=== PATIENT | female | born 1960 | race Caucasian/White ===

== ENCOUNTER 2019-09-10 06:10 | Outpatient (CLI) | payer BC, SELFPAY ==
[2019-09-10 16:38] LABS: SARS-CoV-2 RNA PCR Negative
== END 2019-09-10 06:11 | disposition home or self-care (01) ==
LOC: ANHCOVIDDT 06:12
PROVIDERS: PCP Internal Medicine; Visit Provider Internal Medicine Gastroenterology
DX: Z01.818 Encounter for other preprocedural examination (principal); Z11.59 Encounter for screening for other viral diseases
CPT/HCPCS: 87635; C9803; U0003

== ENCOUNTER 2019-09-12 00:40 | Day surgery (SDC) | payer BC, SELFPAY ==
[2019-09-08 12:04] VITALS: BMI 32.7
[2019-09-12] MEDS: LACTATED RINGERS 1,000 ML 150 ML IV CONT (08:40)
[2019-09-12 08:43] VITALS: BP 144/93; PULSE 94; RESP 18; TEMP 37; O2SAT 98; BMI 35.3
--- NOTE | 2019-09-12 08:48 | SUR.PREOP ---
NUMEROUS SORES NOTED ON EXTREMITIES SMALL IN ORIGIN WITH SOME REDDNESS NOTED AROUND SORES WITH CRUSTED AREA OVER THE SORES.LEE ANN MOTA
--- NOTE | 2019-09-12 08:53 | WPDANESEPPF ---
Anes - Initial Pre Proc Eval Procedure: Operation Date: 09/12/19 09:30 Proposed Procedures p Colonoscopy - Demetrio Carcamo MD Date/Time: 09/12/19 08:53 Surgeon: Demetrio Carcamo MD Pre Op Diagnosis: diarrhea Patient Data Age: 58 Gender: F Height: 5 ft 6 in Weight: 99.2 kg Last Vital Signs Temp 37.0 C 09/12/19 08:43 Pulse 94 09/12/19 08:43 Resp 18 09/12/19 08:43 BP 144/93 H 09/12/19 08:43 Pulse Ox 98 09/12/19 08:43 Allergies Allergy/AdvReac Type Severity Reaction Status Date / Time metoclopramide Allergy Unknown ANXIETY Verified 09/12/19 08:26 Home Medications Medication Instructions Recorded Confirmed Type amitriptyline 50 mg tablet 50 mg PO ONCE 07/16/19 09/12/19 History aripiprazole 2 mg tablet 2 mg PO DAILY #90 tablet 07/16/19 09/12/19 Rx clonazepam 2 mg tablet 2 mg PO BID tablet 07/16/19 09/12/19 History sertraline 100 mg tablet 100 mg PO BID tablet 07/16/19 09/08/19 History zolpidem 10 mg tablet 20 mg PO BID tablet 07/16/19 09/12/19 History albuterol sulfate 90 mcg/actuation 2 puff INHALATION Q4-6H PRN #8.5 gm 08/18/19 09/12/19 Rx aerosol inhaler omeprazole-sodium bicarbonate 1 cap PO DAILY 09/08/19 09/12/19 History Patient hx anesthesia problems: none Family hx anesthesia problems: none PMFSH Family History Family History Father Family history of obesity Depression Patient's father is in good health Mother Family history of obesity Depression Patient's mother is in good health Family history of diabetes mellitus in first degree relative Family history of irritable bowel syndrome Hypertension Family history of elevated blood lipids Grandparent Family history of mental disorder Family history of alcoholism Family history of Alzheimer's disease Diabetes mellitus Family history of malignant neoplasm of stomach Family history of heart disease in male family member before age 55 Family history of cardiovascular disease Family history of hepatitis Sibling Patient's sister is in good health Patient's brother is in good health Family history of learning disability Social History Social History Smoking status: Never smoker Second hand tobacco smoke exposure: No Smoking end date: 04/30/84 Alcohol intake: current Anes - Eval Final PreProcedure Day of Procedure 09/12/19 08:53 Patient weight: obese Heart: regular rate and rhythm Lungs: clear to auscultation Airway: Mallampati scale class II Neurological: alert and oriented Last oral intake: >/= 8 hours ASA classification: III Emergent: no Anesthetic plan: proceed Anesthesia type and monitoring: general GIVS and standard monitoring Informed Consent: The patient's anesthetic plan and its attendant risks and benefits were discussed with the patient/family/POA. Questions were solicited and answers provided to the satisfaction of the patient/family/POA.
--- NOTE | 2019-09-12 09:25 | WPDGICN ---
Assessment and Plan Assessment and plan (1) Chronic diarrhea: Code(s): K52.9 - Noninfective gastroenteritis and colitis, unspecified Status: Acute Assessment and Plan: Patient has chronic diarrhea likely related to irritable bowel syndrome poor response to medication trials. Plan is for colonoscopy to evaluate more thoroughly. Further recommendations will be given after endoscopy. Patient current we will be on FiberCon 2 tabs p.o. b.i.d.. ( Previous cholecystectomy makes it S unable to try Viberzi). Xifaxan may be a consideration. (2) IBS (irritable bowel syndrome): Code(s): K58.9 - Irritable bowel syndrome without diarrhea Status: Acute GI Consult Note Consult date/time: 09/12/19 09:25 HPI: Olivia Zhou is a 58 year old female Seen in evaluation at the request of Dr. Purcell. Patient has a long history of irritable bowel syndrome. She reports diarrhea over the last 5 years she states that occurs daily. She states she never has normal stools. Stools reported be loose or watery. She denies any bleeding. She denies any fever. She denies any weight loss. She currently takes Imodium for relief of symptoms. She does notice occasional hemorrhoidal discomfort. Past medical history is significant for cholecystectomy, she is a history of asthma. In the past has tried Questran am with no relief of symptoms. At 1 time she was given per DM. Past medical history also significant for SLE in remission. She has a history of a lap band. History of gastric bypass. Has been treated for hemolytic anemia in the past with previous splenectomy. Review of Systems Review of Systems: All systems reviewed & are unremarkable except as noted in HPI and below PMFSH Family History Family History Father Family history of obesity Depression Patient's father is in good health Mother Family history of obesity Depression Patient's mother is in good health Family history of diabetes mellitus in first degree relative Family history of irritable bowel syndrome Hypertension Family history of elevated blood lipids Grandparent Family history of mental disorder Family history of alcoholism Family history of Alzheimer's disease Diabetes mellitus Family history of malignant neoplasm of stomach Family history of heart disease in male family member before age 55 Family history of cardiovascular disease Family history of hepatitis Sibling Patient's sister is in good health Patient's brother is in good health Family history of learning disability Social History Social History Smoking status: Never smoker Second hand tobacco smoke exposure: No Smoking end date: 04/30/84 Alcohol intake: current Meds Home Medications and Allergies Home Medications Medication Instructions Recorded Confirmed Type amitriptyline 50 mg tablet 50 mg PO ONCE 07/16/19 09/12/19 History aripiprazole 2 mg tablet 2 mg PO DAILY #90 tablet 07/16/19 09/12/19 Rx clonazepam 2 mg tablet 2 mg PO BID tablet 07/16/19 09/12/19 History sertraline 100 mg tablet 100 mg PO BID tablet 07/16/19 09/08/19 History zolpidem 10 mg tablet 20 mg PO BID tablet 07/16/19 09/12/19 History albuterol sulfate 90 mcg/actuation 2 puff INHALATION Q4-6H PRN #8.5 gm 08/18/19 09/12/19 Rx aerosol inhaler omeprazole-sodium bicarbonate 1 cap PO DAILY 09/08/19 09/12/19 History Allergies Allergy/AdvReac Type Severity Reaction Status Date / Time metoclopramide Allergy Unknown ANXIETY Verified 09/12/19 08:26 Vital Signs Vital Signs - 24 hr 09/12/19 08:43 Temperature 37.0 C Pulse Rate 94 Respiratory Rate 18 Blood Pressure 144/93 H Pulse Oximetry 98 Exam Narrative: Exam Narrative: Physical exam reveals patient to be alert. Vital signs stable. HEENT exam unremarkable. Lungs are clear to auscultation and pe
[2019-09-12 09:31] VITALS: BP 129/83; PULSE 96; RESP 19; O2SAT 100
[2019-09-12 09:41] VITALS: BP 135/90; PULSE 89; RESP 26; O2SAT 98
[2019-09-12 09:51] VITALS: BP 136/84; PULSE 92; RESP 26; O2SAT 98
== END 2019-09-12 10:19 | disposition home or self-care (01) ==
PROVIDERS: PCP Internal Medicine; Visit Provider Internal Medicine Gastroenterology
PROC: 0DJD8ZZ Inspection of Lower Intestinal Tract, Via Natural or Artificial Opening Endoscopic (ICD-10-PCS; CPT 45378; principal; 2019-09-12 09:30)
DX: K58.0 Irritable bowel syndrome with diarrhea (principal); K57.30 Diverticulosis of large intestine without perforation or abscess without bleeding; K64.8 Other hemorrhoids; E66.9 Obesity, unspecified; Z68.35 Body mass index [BMI] 35.0-35.9, adult
CPT/HCPCS: 45380; 88305; J2704; J7120

== ENCOUNTER → 2020-01-15 15:56 | Outpatient (CLI) | payer BC, SELFPAY ==
--- NOTE | ~2020-01-15 | MM_ITS ---
EXAMINATION: MM screening jet BI w wil HISTORY: Screening mammogram TECHNIQUE: Craniocaudal and mediolateral oblique 3-D tomosynthesis images were obtained and synthetic 2-D images were generated. CAD analysis was submitted and interpreted. COMPARISON: 12/25/2018, 10/17/2017, 09/20/2016 bilateral digital screening mammogram examinations BREAST PARENCHYMAL COMPOSITION: There are scattered areas of fibroglandular density. FINDINGS: There is no evidence of suspicious mass, calcification, or architectural distortion to sugg est malignancy in either breast. There has been no suspicious interval change. IMPRESSION: 1. No mammographic evidence of malignancy. 2. Recommend routine screening mammography in one year. BI-RADS Category 1: Negative Reviewed, dictated and finalized at location A.
== END ==
PROVIDERS: PCP Internal Medicine; Visit Provider Internal Medicine
DX: Z12.31 Encounter for screening mammogram for malignant neoplasm of breast (principal)
CPT/HCPCS: 77063; 77067

== ENCOUNTER → 2020-06-11 11:53 | Outpatient (CLI) | payer BC, SELFPAY ==
--- NOTE | ~2020-06-11 | XR_ITS ---
XR hip BI 2V w AP pelvis 06/11/2020 12:09 Indication: Hip pain Procedure: AP pelvis and 2 views each hip Comparison: 11/29/2018 Findings: There is mild osteoarthritis of the hips. No fracture or traumatic malalignment. Sacral for amen are symmetric. No significant soft tissue abnormality. No foreign bodies. Sacral foramen are sym metric. Pelvic rings are intact. Impression: 1: Mild osteoarthritis of the hips. Reviewed, dictated and finalized at location B. INSPECTOR Impression: 1: Mild osteoarthritis of the hips.
== END ==
PROVIDERS: PCP Internal Medicine; Visit Provider Internal Medicine
DX: M16.0 Bilateral primary osteoarthritis of hip (principal); M46.1 Sacroiliitis, not elsewhere classified; M70.61 Trochanteric bursitis, right hip; M70.62 Trochanteric bursitis, left hip
CPT/HCPCS: 73521

== ENCOUNTER → 2020-09-17 09:58 | Outpatient (CLI) | payer BC, SELFPAY ==
--- NOTE | ~2020-09-17 | XR_ITS ---
XR foot LT min 3V DATE: 09/17/2020 10:17 INDICATION: Left foot pain TECHNIQUE: 4 views COMPARISON: None FINDINGS: Osteopenia. Mild plantar and minimal posterior calcaneal enthesopathy. Old healed fracture deformity of the proximal phalanx of the fifth digit. There is linear oblique fra cture through the distal shaft of the proximal phalanx of the fourth digit which may be recent. Clini darryn correlation is advised. Subtle cortical lucency and spurring is noted at the distal lateral aspect of the calcaneus. This may be due to degenerative change or old fracture deformity. No other fracture or dislocation is detected. No periosteal reaction or bone destruction. Mild osteoarthritic change at the first metatarsophalangeal joint. IMPRESSION: Old healed fracture of proximal phalanx of fifth digit Linear oblique fracture through distal shaft of proximal phallus of fourth digit, possibly recent Possible old fracture deformity and/or spurring of the distal lateral aspect of the calcaneus Plantar and minimal posterior calcaneal enthesopathy Osteopenia Reviewed, dictated and finalized at location B. IMPRESSION: Old healed fracture of proximal phalanx of fifth digit Linear oblique fracture through distal shaft of proximal phallus of fourth digi t, possibly recent Possible old fracture deformity and/or spurring of the distal lateral aspect of the calcaneus Plantar and minimal posterior calcaneal enthesopathy Osteopenia
== END ==
PROVIDERS: PCP Internal Medicine; Visit Provider Internal Medicine
DX: S92.515A Nondisplaced fracture of proximal phalanx of left lesser toe(s), initial encounter for closed fracture (principal); M79.672 Pain in left foot; M77.32 Calcaneal spur, left foot; M85.872 Other specified disorders of bone density and structure, left ankle and foot; Z87.81 Personal history of (healed) traumatic fracture
CPT/HCPCS: 73630

== ENCOUNTER → 2021-01-21 03:51 | Outpatient (CLI) | payer BC, SELFPAY ==
[2021-01-21 18:26] LABS: SARS-CoV-2 RNA PCR Negative
== END ==
PROVIDERS: PCP Internal Medicine; Visit Provider Internal Medicine
DX: R68.89 Other general symptoms and signs (principal); Z20.822 Contact with and (suspected) exposure to COVID-19
CPT/HCPCS: C9803; U0003; U0005

== ENCOUNTER 2021-03-03 08:13 | Outpatient (CLI) | payer BC, SELFPAY ==
--- NOTE | ~2021-03-03 | US_ITS ---
EXAMINATION: US abdomen complete EXAM DATE: 03/03/2021 08:56 INDICATION: R79.89 - Other specified abnormal findings of blood chemi... No gallbladder or spleen. TECHNIQUE: Multiple grayscale and Doppler images of the complete abdomen were obtained (by a technolo alice who performed the scan) and subsequently reviewed. Comparison is made to prior examination from 07/23/2018. FINDINGS: The abdominal aorta is normal in caliber. Visualized portion IVC is patent. The pancreatic head a nd body are normal in appearance. The pancreatic tail is not visualized. Mildly echogenic liver parenchyma, hepatic steatosis. There are no focal liver lesions identified. There is no evidence of intrahepatic biliary duct dilation. Portal venous flow was seen in the hepa topedal, normal direction and has normal Doppler waveform. Common bile duct measures 4 mm, which is normal. The gallbladder fossa is unremarkable. Right kidney: There is normal contour and echogenicity. It measures 9.1 x 4.9 x 6.5 centimeters. T here are no focal renal lesions identified. There is no hydronephrosis. Left kidney: There is normal contour and echogenicity. It measures 10.0 x 5.5 x 5.7 centimeters. Th ere is exophytic anechoic left renal cyst measuring up to 9.5 cm, most likely a cyst. There is no h ydronephrosis. Spleen not identified. IMPRESSION: 1. Hepatic steatosis. 2. Left renal lesion likely large exophytic cyst. Reviewed, dictated and finalized at location A.
== END 2021-03-03 08:14 | disposition home or self-care (01) ==
PROVIDERS: PCP Internal Medicine; Visit Provider Internal Medicine
DX: R79.89 Other specified abnormal findings of blood chemistry (principal); K76.0 Fatty (change of) liver, not elsewhere classified; N28.1 Cyst of kidney, acquired
CPT/HCPCS: 76700

== ENCOUNTER → 2021-03-18 14:01 | Outpatient (CLI) | payer BC, SELFPAY ==
--- NOTE | ~2021-03-18 | MM_ITS ---
EXAMINATION: MM screening [facility] BI w wil HISTORY: Screening mammogram TECHNIQUE: Craniocaudal and mediolateral oblique 3-D tomosynthesis images were obtained and synthetic 2-D images were generated. CAD analysis was submitted and interpreted. COMPARISON: 01/15/2020, 12/17/2018 BREAST PARENCHYMAL COMPOSITION: There are scattered areas of fibroglandular density. FINDINGS: There is no evidence of suspicious mass, calcification, or architectural distortion to sugg est malignancy in either breast. There has been no suspicious interval change. IMPRESSION: 1. No mammographic evidence of malignancy. 2. Recommend routine screening mammography in one year. BI-RADS Category 1: Negative Reviewed, dictated and finalized at location A. ITIZED PAPER TESTER
== END ==
PROVIDERS: PCP Internal Medicine; Visit Provider Internal Medicine
DX: Z12.31 Encounter for screening mammogram for malignant neoplasm of breast (principal)
CPT/HCPCS: 77063; 77067

== ENCOUNTER 2021-04-16 13:17 | Inpatient (IN) | payer BC, SELFPAY ==
[2021-04-16] VITALS (12 sets, daily range): BP systolic 116–149; BP diastolic 79–110; PULSE 73–100; RESP 14–26; TEMP 36.3–37.5; O2SAT 90–100; BMI 40.0
--- NOTE | ~2021-04-16 | US_ITS ---
US abdomen limited INDICATION: Elevated liver function tests. PROCEDURE: Realtime right upper abdominal ultrasound. COMPARISON: No prior studies for comparison. FINDINGS: The pancreas is normal without focal mass or pancreatic ductal dilation. Liver echotexture is increased, consistent with fatty infiltration. There is normal directional flow in the portal ve in. Gallbladder is surgically absent. Common bile duct measures 4 mm. No sonographic Ibarra's sign. IMPRESSION: 1: Hepatic steatosis. Reviewed, dictated and finalized at location A. C[employer]ODUCE COMMISSION AGENT IMPRESSION: 1: Hepatic steatosis.
--- NOTE | ~2021-04-16 | US_ITS ---
EXAMINATION:US venous doppler LE BI INDICATION:Bilateral leg pain. Evaluate for DVT. TECHNIQUE: Multiple grayscale, color flow and Doppler images of the right and left lower extremity de ep venous systems were obtained and reviewed. COMPARISON:No prior studies for comparison. FINDINGS: The common femoral, superficial femoral and popliteal veins demonstrate normal respiratory variation, augmentation and compressibility. Color flow is also seen within the posterior tibial, pe roneal, greater saphenous and profunda veins. IMPRESSION: 1: No lower extremity deep venous thrombosis. Reviewed, dictated and finalized at location A. TECHNICIAN/PAINTER
--- NOTE | ~2021-04-16 | XR_ITS ---
EXAMINATION: XR chest 1V portable 04/16/2021 16:14 INDICATION: Shortness of breath. Overdose. PROCEDURE: AP portable chest COMPARISON: 09/22/2011 FINDINGS: The lungs are clear. The cardiomediastinal silhouette is within normal limits. There are no pleural effusions. There is no pneumothorax suspected. There are surgical changes of cervical sp inal fusion. There are surgical clips in the left upper abdomen. IMPRESSION: 1: NO ACUTE CARDIOPULMONARY DISEASE. Reviewed, dictated and finalized at location A. E OR[employer]OPEDIC
--- NOTE | ~2021-04-16 | CT_ITS ---
EXAMINATION: CTA chest PE protocol DATE: 04/16/2021 16:59 DIVING COACH INDICATION: Hypoxia. Gastric bypass surgery. Accidental overdose. TECHNIQUE: Computed tomographic angiography (CTA) of the chest was performed without and with 100 mL Omnipaque-350 intravenous contrast. The dose-length product was 769.51 mGy-cm. Maximum intensity proj ection 3D-reconstructions of the aorta and other arteries were constructed by the technologist on a Ver[employer] workstation. Automated exposure control and iterative reconstruction technique were employed. COMPARISON: None. FINDINGS: Evaluation of lower lobe segmental arteries limited by motion. There are small filling defe cts in lower lobe segmental and subsegmental pulmonary arteries, consistent with pulmonary embolism, small thrombus burden. Heart size normal. No evidence for aortic aneurysm. No thoracic lymphadenopath y. There is dependent atelectasis bilaterally. No endobronchial lesions. No pneumothorax. No acute os seous abnormality. IMPRESSION: 1. Filling defects lower lobe segmental and subsegmental pulmonary arteries, consistent with pulmonar y embolism, small thrombus burden. 2: Dependent bilateral atelectasis. Reviewed, dictated and finalized at location A. NG COACH IMPRESSION: 1. Filling defects lower lobe segmental and subsegmental pulmonary arteries, co nsistent with pulmonary embolism, small thrombus burden. 2: Dependent bilateral atelectasis.
--- NOTE | 2021-04-16 14:08 | ED.GENADULT ---
HPI - General Adult General Chief complaint: Overdose Stated complaint: OD Time Seen by Provider: 04/16/21 13:57 History of Present Illness HPI narrative: 60-year-old female presented emerged department for evaluation after having an accidental overdose of her hydrocodone. Patient states that on Sunday she had a revision of her gastric bypass at [facility] by Dr. Solorio. Surgery was on Sunday and patient went home on . states that this morning at approximately 530 patient woke him up and asked for him to retrieve her hydrocodone elixir. states that he got up about 10:00 to do some work and his continue to sleep. states that at approximately noon he went to go check on his and found her unresponsive frothing at the mouth. At that time he called EMS. EMS did administer intranasal Narcan and also gave a dose of IV Narcan. At the time of my first evaluation patient is more alert and appropriate. Patient does converse easily to verbal stimuli. Patient is alert to her history but does not remember the events of the morning. Patient denies any shortness of breath. Patient denies any abdominal pain. Patient feels she is healing well after her surgery. Related Data Home Medications Medication Instructions Recorded Confirmed sertraline 100 mg tablet 100 mg PO BID tablet 07/16/19 04/08/21 amitriptyline 50 mg tablet 50 mg PO DAILY tablet 02/04/20 04/08/21 aripiprazole 2 mg tablet 2 mg PO DAILY 09/21/20 04/08/21 clonazepam 2 mg tablet 2 mg PO DAILY 01/13/21 04/08/21 omeprazole-sodium bicarbonate 1 cap PO 04/08/21 04/08/21 [Zegerid] Allergies Allergy/AdvReac Type Severity Reaction Status Date / Time metoclopramide AdvReac Severe ANXIETY Verified 04/16/21 13:43 Review of Systems Review of Systems: CONSTITUTIONAL: Denies fever, chills, or sweats. EYES: Denies visual changes, redness, or discharge. ENT: Denies rhinorrhea, congestion, sore throat, or otalgia. CARDIOVASCULAR: Denies chest pain, palpitations, or edema. RESPIRATORY: Denies cough or dyspnea. GASTROINTESTINAL: Denies nausea, vomiting, or diarrhea. Surgical abdominal pain is improving GENITOURINARY: Denies dysuria or hematuria. SKIN: Denies rash or itching. MUSCULOSKELETAL: Denies back pain, joint pain, or myalgia. NEUROLOGIC: Denies headache, numbness, or weakness. PSYCHIATRIC: Denies anxiety or depression. [facility] Past Medical History Medical History Asthma Chronic ITP (idiopathic thrombocytopenia) Discoid lupus Hemolytic anemia Systemic lupus Toe fracture, left Vision changes Wears glasses Weight gain Surgical History Surgical History History of abdominoplasty 2000, 2006 History of breast lift History of cervical discectomy with fusion, 2007 History of gastric bypass 2014 History of incisional hernia repair x2 History of removal of laparoscopic gastric banding device 2007, 2008 History of surgery Suboccipital surgery for acoustic neuroma Hx of cholecystectomy Hx of splenectomy 1983 Personal history of gastric banding 2002, 2007 Family History Family History Father Family history of obesity Depression Patient's father is in good health Mother Family history of obesity Depression Patient's mother is in good health Family history of diabetes mellitus in first degree relative Family history of irritable bowel syndrome Hypertension Family history of elevated blood lipids Grandparent Family history of mental disorder Family history of alcoholism Family history of Alzheimer's disease Diabetes mellitus Family history of malignant neoplasm of stomach Family history of heart disease in male family member before age 55 Family history of cardiovascular disease Family history of hepatitis Sibling Patient's sister is in go
[2021-04-16] MEDS: SODIUM CHLORIDE 0.9% IV 1,000 ML 999 ML IV CONT ×2 (14:42→16:26)
[2021-04-16 14:59] LABS: Glucose Point of Care 170 mg/dl (65-105)
[2021-04-16 15:15] LABS: Add Urine Microscopic? YES; Appearance Urine Clear (Clear); Bilirubin Urine Negative (Negative); Blood Urine Negative (Negative); Color Urine Yellow (Yellow); Glucose Urine UA Negative (Negative); Ketones Urine Trace mg/dL (Negative); Leukocyte Esterase Ur Negative LEU/UL (Negative); Mucus Urine Rare /lpf; Nitrate Urine Negative (Negative); Protein Urine Negative (Negative); Specific Grav Ur 1.013 (1.001-1.035); Urobilinogen Urine Negative mg/dL (<2.0)
[2021-04-16 15:32] LABS: Basophils Percent Auto 0.2 % (0.2-1.2); Eosinophils Percent Auto 0.1 % (0-4.4); Hematocrit 36.9 % (37.0-47.0); Hemoglobin 11.7 g/dL (12.0-15.0); Immature Granulocyte Absolute 0.02 K/mm3 (0.00-0.031); Immature Granulocyte Percent A 0.2 % (0-0.5); Lymphocytes Absolute Auto 1.26 K/mm3 (0.9-3.2); Lymphocytes Percent Auto 12.1 % (18.3-44.2); Mean Corpuscular HGB Conc 31.7 g/dl (32-36); Mean Corpuscular Hemoglobin 34.8 pg (26-34); Mean Corpuscular Volume 109.8 fl (80-100); Mean Platelet Volume 10.4 fl (7.4-10.4); Monocytes Percent Auto 9.9 % (2.6-8.5); Neutrophils Absolute Auto 8.1 K/mm3 (1.3-6.7); Neutrophils Percent Auto 77.5 % (45.5-73.1); Platelet Count Result 195 k/mm3 (150-375); Red Blood Count 3.36 M/mm3 (4.2-5.4); Red Cell Distribution Width 12.7 % (11.5-14.5); White Blood Count 10.4 K/mm3 (4.5-10.0)
[2021-04-16 15:43] LABS: Acetaminophen < 10 ug/mL (10-30); Alanine Aminotransferase 148 U/L (4-35); Albumin Level 3.8 g/dL (3.5-5.1); Alkaline Phosphatase 72 U/L (38-126); Anion Gap 7 mmol/L (8-16); Aspartate Amino Transferase 268 U/L (14-36); Bilirubin,Total 0.5 mg/dL (0.2-1.3); Blood Urea Nitrogen 19 mg/dL (7-17); Carbon Dioxide 24 mmol/L (22-30); Chloride 100 mmol/L (98-107); Estimated CRCL calculation 55 ml/min; Estimated Glomerular Filt Rate 38; Ethanol < 10 mg/dL (<10); Glucose 154 mg/dL (65-110); Magnesium 2.1 mg/dL (1.6-2.3); Potassium 5.1 mmol/L (3.4-5.0); Salicylate < 1.0 mg/dL (2-20); Sodium 131 mmol/L (137-145)
[2021-04-16 15:44] LABS: Lactic Acid Reflex 1.2 mmol/L (0.7-2.1)
[2021-04-16 15:44] LABS: Alveolar/Arterial O2 Gradient 93.3 mmHg; Fractional Inspired Oxygen 28 %; HCO3 ABG 23.8 mEq/l (22.0-26.0); Oxygen Content ABG 15.3 %vol (16.0-22.0); PCO2 ABG 44.5 mmHg (35.0-45.0); PO2 FiO2 Ratio Arterial Blood 1.92 %; Total Hemoglobin 12.6 g/dL (12.0-18.0); pH ABG 7.346 (7.350-7.450)
[2021-04-16 15:45] LABS: Oxygen Saturation ABG 86.2 % (95.0-100.0); Oxyhemoglobin 86.4 % THb (90.0-100.0)
[2021-04-16 15:46] LABS: PO2 ABG 53.8 mmHg (80.0-100.0)
[2021-04-16 15:47] LABS: INR 1.2
[2021-04-16 15:47] LABS: Device NASAL CANNULA; Modified Allen's Test Pass; Site Drawn LEFT RADIAL
[2021-04-16] MEDS: ENOXAPARIN 80 MG/0.8 ML SYRINGE 135 MG SUB-Q (18:00)
--- NOTE | 2021-04-16 19:15 | PC.NURSE ---
Assumed care of pt at this time, report taken from Helga MOTA. Pt alert and upright on stretcher, on 2L NC.
--- NOTE | 2021-04-16 22:38 | ADMGEN ---
This patient, Olivia Zhou, was admitted to Medical Room 344-01. Patient/family oriented to hospital policies and general routines including ID bracelet, bed and alarms, visiting hours, pain management, procedures, bathroom and other care routines, personal items, smoking policy, room service/diet, and visiting hours. Information on how to activate the Rapid Response Team has been discussed. Patient/Family are encouraged to report perceived risks to care and to ask questions if they do not understand what they are told or what they should do.
[2021-04-16 23:05] LABS: Amphetamine Screen Urine Negative (Negative); Barbiturate Screen Urine Negative (Negative); Benzodiazepines Screen Urine Positive (Negative); Cannabinoid Screen Urine Negative (Negative); Cocaine Screen Urine Negative (Negative); Methadone Screen Urine Negative (Negative); Opiate Screen Urine Positive (Negative); Phencyclidine Screen Urine Negative (Negative)
[2021-04-17] VITALS (15 sets, daily range): BP systolic 137–159; BP diastolic 75–94; PULSE 73–90; RESP 14–20; TEMP 35.8–36.3; O2SAT 91–100
--- NOTE | 2021-04-17 01:00 | PM.IMHP ---
H&P: HPI History of Present Illness Date/Time: 04/16/21 20:14 Chief Complaint: Overdose Narrative: 60-year-old female presented emerged department for evaluation after having an accidental overdose of her oxycodone. She has recently had a revision of her gastric bypass at [facility] last week. She has been using oxycodone leg stare for pain control and states she accidentally took higher than required does in the morning yesterday. The when went to check on her in the afternoon found her unresponsive with frothing in her mouth and called EMS. EMS noted reviewed. Had 120 mL of oxycodone filled on 04/14/2021 has only 40 mL left patient had a 10 mL syringe with it treatment was 4 5 milligram/mL every 6 hours. Patient was given 2 mg of Narcan intranasally initial saturation was 71% on room air was placed on 15 L oxygen via non-rebreather mask. Patient became responsive to painful stimuli. IV line was stabbed Marifer and subsequently 2 mg of IV Narcan was given which improved her to become more alert but remained confused. She is noted to be tachycardic on the monitor blood glucose was 71. She remained confusion route to the hospital. Saturation was 95% on oxygen. She was evaluated with a CTA due to her hypoxia and was positive for bilateral subsegmental PE. She does not have any history of PE in the past or in the family. She also states she does not remember anything what happened at home and by the time she is more awake she was already in the hospital. The patient is currently off oxygen and denies any chest pain or shortness of breath. She also denies abdominal pain except for surgical pain from her recent surgery. Review of Systems Review of Systems: CONSTITUTIONAL: Denies fever, chills, or sweats. EYES: Denies visual changes, redness, or discharge. ENT: Denies rhinorrhea, congestion, sore throat, or otalgia. CARDIOVASCULAR: Denies chest pain, palpitations, or edema. RESPIRATORY: Denies cough or dyspnea. GASTROINTESTINAL: Denies nausea, vomiting, or diarrhea. Surgical abdominal pain is improving GENITOURINARY: Denies dysuria or hematuria. SKIN: Denies rash or itching. MUSCULOSKELETAL: Denies back pain, joint pain, or myalgia. NEUROLOGIC: Denies headache, numbness, or weakness. PSYCHIATRIC: Denies anxiety or depression. PMFSH Past Medical History Medical History Asthma Chronic ITP (idiopathic thrombocytopenia) Discoid lupus Hemolytic anemia Systemic lupus Toe fracture, left Vision changes Wears glasses Weight gain Surgical History Surgical History History of abdominoplasty 2000, 2006 History of breast lift History of cervical discectomy with fusion, 2007 History of gastric bypass 2014 History of incisional hernia repair x2 History of removal of laparoscopic gastric banding device 2007, 2008 History of surgery Suboccipital surgery for acoustic neuroma Hx of cholecystectomy Hx of splenectomy 1983 Personal history of gastric banding 2002, 2007 Family History Family History Father Family history of obesity Depression Patient's father is in good health Mother Family history of obesity Depression Patient's mother is in good health Family history of diabetes mellitus in first degree relative Family history of irritable bowel syndrome Hypertension Family history of elevated blood lipids Grandparent Family history of mental disorder Family history of alcoholism Family history of Alzheimer's disease Diabetes mellitus Family history of malignant neoplasm of stomach Family history of heart disease in male family member before age 55 Family history of cardiovascular disease Family history of hepatitis Sibling Patient's sister is in good health Patient's brother is in good health Family history of learning disability Other
[2021-04-17 06:16] LABS: Basophils Percent Auto 0.6 % (0.2-1.2); Eosinophils Absolute Auto 0.1 K/mm3 (0-0.3); Eosinophils Percent Auto 0.8 % (0-4.4); Hemoglobin 11.3 g/dL (12.0-15.0); Immature Granulocyte Absolute 0.02 K/mm3 (0.00-0.031); Immature Granulocyte Percent A 0.3 % (0-0.5); Lymphocytes Percent Auto 24.1 % (18.3-44.2); Mean Corpuscular HGB Conc 32.3 g/dl (32-36); Mean Corpuscular Hemoglobin 34.6 pg (26-34); Mean Platelet Volume 10.4 fl (7.4-10.4); Monocytes Absolute Auto 0.5 K/mm3 (0.1-0.6); Monocytes Percent Auto 6.9 % (2.6-8.5); Neutrophils Absolute Auto 4.5 K/mm3 (1.3-6.7); Neutrophils Percent Auto 67.3 % (45.5-73.1); Platelet Count Result 198 k/mm3 (150-375); Red Blood Count 3.27 M/mm3 (4.2-5.4); Red Cell Distribution Width 12.5 % (11.5-14.5); White Blood Count 6.6 K/mm3 (4.5-10.0)
[2021-04-17 06:32] LABS: Alanine Aminotransferase 346 U/L (4-35); Albumin Level 3.8 g/dL (3.5-5.1); Alkaline Phosphatase 71 U/L (38-126); Anion Gap 5 mmol/L (8-16); Aspartate Amino Transferase 648 U/L (14-36); Bilirubin,Total 0.5 mg/dL (0.2-1.3); Blood Urea Nitrogen 14 mg/dL (7-17); Calcium 8.3 mg/dL (8.4-10.2); Carbon Dioxide 26 mmol/L (22-30); Chloride 100 mmol/L (98-107); Estimated CRCL calculation 84 ml/min; Estimated Glomerular Filt Rate > 60; Glucose 101 mg/dL (65-110); Potassium 4.7 mmol/L (3.4-5.0); Sodium 131 mmol/L (137-145)
[2021-04-17] MEDS: FLUTICASONE/SALMETEROL 115-21 MCG INHALER 1 PUFF 2 PUFF INHALATION (07:37)
[2021-04-17] MEDS: SERTRALINE HCL 50 MG TABLET 200 MG PO (08:47)
[2021-04-17] MEDS: ARIPiprazole 2 MG TABLET 4 MG PO (08:47)
[2021-04-17] MEDS: FAMOTIDINE 20 MG TABLET PO ×2 (08:47→18:23)
[2021-04-17] MEDS: AMITRIPTYLINE HCL 25 MG TABLET 50 MG PO ×2 (08:47→20:21)
[2021-04-17] MEDS: oxyCODONE/ACETAMINOPHEN (*CRX) 5-325 MG TABLET 1 TABLET PO ×2 (08:47→20:25)
[2021-04-17] MEDS: PANTOPRAZOLE 40 MG TABLET PO (08:47)
[2021-04-17] MEDS: ROSUVASTATIN 5 MG TABLET PO (08:47)
[2021-04-17] MEDS: ENOXAPARIN 120 MG/0.8 ML SYRINGE 110 MG SUB-Q ×2 (08:48→18:24)
--- NOTE | 2021-04-17 09:49 | PM.IMPN ---
Progress Note: A&P Assessment and Plan (1) Elevated LFTs: Code(s): R79.89 - Other specified abnormal findings of blood chemistry Status: Acute Assessment and Plan: concern that her liver enzymes are elevated 6 times higher than they were 9 days ago. her LFTs were as high 648 and 346, encouraged more PO fluid intake repeat labs to see a down trend, there could be some component of rhabdomyolysis based on her presentation to the ER. may need more IV fluids - restarted at 125 nl/hr patient admitted that she had been drinking alcohol heavily at home, primary care provider was looking into her liver dysfunction, with liver ultrasounds, and stated that need to stop drinking. ordered [facility] alcohol withdrawal protocol - agitated and anxious, may be a component of alcohol withdrawal. Klonopin PRN. (2) Lupus: Code(s): M32.9 - Systemic lupus erythematosus, unspecified Status: Acute Assessment and Plan: patient stated this is in remission at this time no new or concerning symptoms per patient or report no rashes, no concerns noted on exam patient follows-up with Specialist outpatient regarding her lupus. (3) Opioid overdose: Code(s): T40.2X1A - Poisoning by other opioids, accidental (unintentional), initial encounter Status: Acute Assessment and Plan: home oxygen study orthostatic vital signs. neuro checks Narcan PRN Telemetry monitoring improved with Narcan, IVFs, rest and time, due to her liver failure - she may not tolerate or clear narcotic pain medications well and need much lower doses at home/at discharge. (4) Altered mental status: Code(s): R41.82 - Altered mental status, unspecified Status: Acute Assessment and Plan: LOC, AMS at admission was using PO liquid oxycodone at home improved with Narcan, IVFs, rest and time, telemetry monitoring home oxygen study orthostatic vital signs. neuro checks due to her liver failure - she may not tolerate or clear narcotic pain medications well and need much lower doses at home. if worsens, consider checking ammonia level. doesn't appear to be intoxicated at this time. Appears to be in withdrawal at times, anxiety/agitation. Unsure if alcohol withdrawal or opioid withdrawal. (5) Acute pulmonary embolism: Code(s): I26.99 - Other pulmonary embolism without acute cor pulmonale Status: Acute Assessment and Plan: bilateral pulmonary embolisms found on the CT scan need for oral anticoagulation prescription at discharge, need for an echo now to evaluate/rule out for right heart strain at this time, Xarelto to be ordered at discharge (orders in place already), Care Coordination consult in place patient will need to F/U with PCP within 3-14 days for Hospital Follow up and further Xarelto prescriptions(D/C orders already in place) Additional Plan # Altered mental status found to be unresponsive with frothing in the mouth. Improved with IV Narcan and Chest x-rays negative. Continued to improve after Narcan suggestive of opiate overdose as the etiology # Opiate overdose Narcan received. Continue to monitor # Acute Hypoxic respiratory failure initially 71% on room air improved on oxygen supplementation now off oxygen # Acute segmental PE small clot burden. Started on Lovenox at 1 mg per Q lobe twice a day venous duplex lower extremity negative for DVT. May switch to oral agent and morning after confirming cost for NOACs. Likely provoked due to recent surgery. With underlying autoimmune disease ordered thrombotic panel # Recent revision of 5 gastric bypass surgery original in 2013 prior to that had gastric banding 2002, 2007 # hyponatremia mild continue to monitor recheck labs in morning # JUNG baseline creatinine 0.7 currently 1.4 # Elevated transaminases Tylenol salicylate and ethyl alcohol negative. Does have history of mild transaminitis in the past ultrasound with hepatic steatosis recently on
--- NOTE | 2021-04-17 14:24 | PCRCNOTE ---
Patient does not qualify for home oxygen
[2021-04-17] MEDS: clonazePAM (*CRX) 0.5 MG TABLET 2 MG PO (18:23)
[2021-04-17] MEDS: SODIUM CHLORIDE 0.9% IV 1,000 ML 125 ML IV CONT (18:46)
[2021-04-17] MEDS: ZOLPIDEM TARTRATE (*CRX) 5 MG TABLET 20 MG PO (20:24)
--- NOTE | 2021-04-17 22:03 | PCRCNOTE ---
therapist in ED, unable to give. past scheduled time frame, see next available administration.
[2021-04-18] VITALS (12 sets, daily range): BP systolic 128–165; BP diastolic 78–98; PULSE 70–89; RESP 17–20; TEMP 36–36.5; O2SAT 95–99
--- NOTE | 2021-04-18 | ECHO_ITS ---
Patient Info Name: Olivia Zhou Age: 60 years : 1960 Gender: Female Ht: 66 in Wt: 248 lbs BSA: 2.34 m2 HR: 89 bpm BP: 152 / 87 mmHg Heart Rhythm: Sinus Rhythm Technical Quality: Good Exam Date: 04/18/2021 10:41 AM Exam Location: [facility] Card Pulmonary Patient Status: Inpatient Admit Date: 04/16/2021 Staff Ordering Physician: Ree Richmond NP Wardrobe Specialty Worker: Evonne Santoro RDCS Attending Provider: Natty Odell PA-C Referring Physician: Basilio DIXON; Exam Type: CA echo doppler color flow Study Info Indications - BILATERAL PEs, any RH STRAIN Complete two-dimensional, color flow and Doppler transthoracic echocardiogram is performed. Summary 1. Complete two-dimensional, color flow and Doppler transthoracic echocardiogram is performed. 2. Left ventricular chamber dimension is normal. 3. Left ventricular systolic function is normal, estimated at 60-65%. 4. The left ventricular diastolic function is normal. 5. E/e' 9 is minimally elevated. 6. There is mild mitral valve regurgitation. 7. There is mild tricuspid valve regurgitation. 8. Mild pulmonary hypertension, estimated pulmonary arterial systolic pressure is 45 mmHg. Left Ventricle E/e' 9 is minimally elevated. Left ventricular chamber dimension is normal. Left ventricular systolic function is normal, estimated at 60-65%. The left ventricular diastolic function is normal. Right Ventricle Right ventricular systolic function is normal and with normal TAPSE 2.2 cm. Right ventricular chamber dimension is normal. Left Atria Left atrial chamber dimension is normal. Right Atria Right atrial chamber dimension is normal. Aortic Valve The aortic valve is trileaflet. There is no aortic valve stenosis. There is no aortic valve regurgitation. Pulmonic Valve There is no pulmonic regurgitation. Mitral Valve There is no mitral valve stenosis. There is mild mitral valve regurgitation. Tricuspid Valve There is mild tricuspid valve regurgitation. Mild pulmonary hypertension, estimated pulmonary arterial systolic pressure is 45 mmHg. Pericardium/Pleural There is no pericardial effusion. Inferior Vena Cava Normal inferior vena cava with >50% collapse upon inspiration consistent with normal right atrial pressure, 5 mmHg. Aorta The aortic root size at the sinus of Valsalva is normal. Left Ventricular Outflow Tract Name Value Normal LVOT 2D LVOT Diameter 2.0 cm LVOT Doppler LVOT Peak Gradient 5 mmHg LVOT Mean Gradient 2 mmHg LVOT VTI 23 cm LVOT VTI/AV VTI Ratio 0.9 LVOT Stroke Volume 73 ml LVOT CO 5.8 l/min LVOT CI 2.5 l/min/m2 Pulmonic Valve Name Value Normal RVOT Doppler
[2021-04-18 05:21] LABS: Basophils Percent Auto 0.7 % (0.2-1.2); Eosinophils Absolute Auto 0.2 K/mm3 (0-0.3); Eosinophils Percent Auto 3.2 % (0-4.4); Hematocrit 36.8 % (37.0-47.0); Immature Granulocyte Absolute 0.01 K/mm3 (0.00-0.031); Immature Granulocyte Percent A 0.2 % (0-0.5); Lymphocytes Absolute Auto 1.97 K/mm3 (0.9-3.2); Lymphocytes Percent Auto 34.7 % (18.3-44.2); Mean Corpuscular HGB Conc 32.6 g/dl (32-36); Mean Corpuscular Hemoglobin 35.2 pg (26-34); Mean Corpuscular Volume 107.9 fl (80-100); Mean Platelet Volume 10.2 fl (7.4-10.4); Monocytes Absolute Auto 0.6 K/mm3 (0.1-0.6); Monocytes Percent Auto 9.7 % (2.6-8.5); Neutrophils Absolute Auto 2.9 K/mm3 (1.3-6.7); Neutrophils Percent Auto 51.5 % (45.5-73.1); Platelet Count Result 200 k/mm3 (150-375); Red Blood Count 3.41 M/mm3 (4.2-5.4); Red Cell Distribution Width 12.5 % (11.5-14.5); White Blood Count 5.7 K/mm3 (4.5-10.0)
[2021-04-18 05:39] LABS: Alanine Aminotransferase 370 U/L (4-35); Albumin Level 3.4 g/dL (3.5-5.1); Alkaline Phosphatase 74 U/L (38-126); Anion Gap 7 mmol/L (8-16); Aspartate Amino Transferase 470 U/L (14-36); Bilirubin,Total 0.7 mg/dL (0.2-1.3); Blood Urea Nitrogen 10 mg/dL (7-17); Calcium 8.2 mg/dL (8.4-10.2); Carbon Dioxide 27 mmol/L (22-30); Chloride 103 mmol/L (98-107); Estimated CRCL calculation 109 ml/min; Estimated Glomerular Filt Rate > 60; Glucose 94 mg/dL (65-110); NT Pro B Type Natriuretic Pept 1160 pg/mL (5-100); Potassium 3.8 mmol/L (3.4-5.0); Sodium 137 mmol/L (137-145)
[2021-04-18] MEDS: ENOXAPARIN 120 MG/0.8 ML SYRINGE 110 MG SUB-Q (06:02)
[2021-04-18] MEDS: SODIUM CHLORIDE 0.9% IV 1,000 ML 125 ML IV CONT (06:05)
[2021-04-18] MEDS: ARIPiprazole 2 MG TABLET 4 MG PO (09:01)
[2021-04-18] MEDS: FAMOTIDINE 20 MG TABLET PO ×2 (09:01→17:33)
[2021-04-18] MEDS: ROSUVASTATIN 5 MG TABLET PO (09:01)
[2021-04-18] MEDS: oxyCODONE/ACETAMINOPHEN (*CRX) 5-325 MG TABLET 1 TABLET PO ×2 (09:01→17:32)
[2021-04-18] MEDS: SERTRALINE HCL 50 MG TABLET 200 MG PO (09:02)
[2021-04-18] MEDS: PANTOPRAZOLE 40 MG TABLET PO (09:02)
[2021-04-18] MEDS: clonazePAM (*CRX) 0.5 MG TABLET 2 MG PO (12:12)
--- NOTE | 2021-04-18 16:34 | PM.IMPN ---
Progress Note: A&P Assessment and Plan (1) Acute pulmonary embolism: Code(s): I26.99 - Other pulmonary embolism without acute cor pulmonale Status: Acute Assessment and Plan: CTA on presentation showed filling defects of lower lobe segmental and subsegmental pulmonary arteries consistent with PE with small thrombus burden. Venous Doppler negative for DVT bilaterally Echocardiogram reviewed with normal EF, no evidence of heart strain BNP is mildly elevated. Has been receiving therapeutic Lovenox. Will transition to p.o. Xarelto this evening. 15 mg q.12 hours x21 days, then 20 mg daily for at least 3 months. Follow up with PCP. This may have been related to her postoperative status from her gastric bypass revision. Care coordination following for Xarelto pricing. Patient comfortable with proceeding. Discussed bleeding risk and monitoring with this medication. (2) Elevated LFTs: Code(s): R79.89 - Other specified abnormal findings of blood chemistry Status: Acute Assessment and Plan: LFTs markedly elevated. She was evaluated by PCP about 10 days ago for the same issue, however LFTs were mildly elevated at that time. Now 6x higher. Repeat RUQ US today showed hepatic steatosis. Gallbladder surgically absent. No dilation of the common bile duct. LFTs have trended down today. I spoke with her PCP, Dr. Purcell, who recommends further inpatient monitoring. States that if continued downward trend tomorrow, would feel comfortable with discharge and outpatient monitoring after the holiday. (3) Opioid overdose: Code(s): T40.2X1A - Poisoning by other opioids, accidental (unintentional), initial encounter Status: Acute Assessment and Plan: Unintentional overdose. Took too much of her pain medication and was found by her extremely lethargic. She has a miotic improvement following Narcan. She is back to her baseline at this point Narcotics will need to be decreased or even discontinued prior to discharge if patient's pain has improved. (4) Lupus: Code(s): M32.9 - Systemic lupus erythematosus, unspecified Status: Acute Assessment and Plan: No acute issues at this time (5) Altered mental status: Code(s): R41.82 - Altered mental status, unspecified Status: Acute Assessment and Plan: Related to opioid overdose as above (6) Alcohol abuse: Code(s): F10.10 - Alcohol abuse, uncomplicated Status: Acute Assessment and Plan: She reports drinking a couple bottles of wine each night. Her PCP thought she may be confused and thought that she may only be having a couple glasses of wine at night. Regardless, the patient states she has not drink since 04/12/2021. Denies any alcohol withdrawal symptoms. CIWA scores 0-2 Begin thiamine and folic acid Monitor closely for symptoms Continue to encourage alcohol cessation Heavy alcohol use could explain elevation of LFTs Subjective Date/time seen: 04/18/21 16:34 Interval history: Date of service: 04/18/2021 Olivia Zhou is a 60-year-old female with a history asthma, systemic lupus, hemolytic anemia, recent gastric bypass revision on 04/13/2021 who is seen in follow-up for pulmonary embolism and accidental opioid overdose. She is feeling well today. She denies shortness of breath. Denies chest pain. She did endorse nausea. She denies abdominal pain or cramping. She has been able to get up and walk around without difficulty. She denies abdominal pain at this time. She is tolerating a clear liquid diet which she is to remain on until 04/20/2021. She is very eager for discharge home and is quite upset about needing to stay in the hospital again tonight. Review of Systems Review of Systems: All systems reviewed & are unremarkable except as noted in HPI and below Exam Narrative: Ms Zhou is a well-nourished, well-appearing
[2021-04-18] MEDS: RIVAROXABAN 15 MG TABLET PO (17:33)
--- NOTE | 2021-04-18 19:22 | PCRCNOTE ---
Window of time for administration has passed. See next scheduled administration.
[2021-04-18] MEDS: ALBUTEROL SULFATE (*SP) AEROSOL 1 PUFF 2 PUFF INHALATION (20:15)
[2021-04-18] MEDS: AMITRIPTYLINE HCL 25 MG TABLET 50 MG PO (21:04)
[2021-04-18] MEDS: ZOLPIDEM TARTRATE (*CRX) 5 MG TABLET 20 MG PO (21:05)
[2021-04-19 00:05] VITALS: PULSE 75; RESP 20; O2SAT 97
[2021-04-19 04:04] VITALS: PULSE 74; RESP 20; O2SAT 98
[2021-04-19 04:39] VITALS: BP 144/84; PULSE 76; RESP 20; TEMP 35.7; O2SAT 97
[2021-04-19 05:42] LABS: Hematocrit 36.4 % (37.0-47.0); Hemoglobin 12.2 g/dL (12.0-15.0); Mean Corpuscular HGB Conc 33.5 g/dl (32-36); Mean Corpuscular Hemoglobin 34.8 pg (26-34); Mean Corpuscular Volume 103.7 fl (80-100); Mean Platelet Volume 10.6 fl (7.4-10.4); Platelet Count Result 227 k/mm3 (150-375); Red Blood Count 3.51 M/mm3 (4.2-5.4); Red Cell Distribution Width 12.6 % (11.5-14.5); White Blood Count 5.1 K/mm3 (4.5-10.0)
[2021-04-19 05:56] LABS: Alanine Aminotransferase 307 U/L (4-35); Albumin Level 3.6 g/dL (3.5-5.1); Alkaline Phosphatase 74 U/L (38-126); Anion Gap 8 mmol/L (8-16); Aspartate Amino Transferase 270 U/L (14-36); Bilirubin,Total 0.6 mg/dL (0.2-1.3); Blood Urea Nitrogen 9 mg/dL (7-17); Calcium 8.5 mg/dL (8.4-10.2); Carbon Dioxide 26 mmol/L (22-30); Chloride 99 mmol/L (98-107); Creatine Kinase 131 U/L (30-135); Estimated CRCL calculation 129 ml/min; Estimated Glomerular Filt Rate > 60; Glucose 87 mg/dL (65-110); Potassium 3.5 mmol/L (3.4-5.0); Sodium 133 mmol/L (137-145)
[2021-04-19] MEDS: ARIPiprazole 2 MG TABLET 4 MG PO (07:58)
[2021-04-19] MEDS: PANTOPRAZOLE 40 MG TABLET PO (07:58)
[2021-04-19] MEDS: RIVAROXABAN 15 MG TABLET PO (07:58)
[2021-04-19] MEDS: FAMOTIDINE 20 MG TABLET PO (07:58)
[2021-04-19] MEDS: THIAMINE HCL 100 MG TABLET PO (07:58)
[2021-04-19] MEDS: FOLIC ACID 1 MG TABLET PO (07:58)
[2021-04-19] MEDS: SERTRALINE HCL 50 MG TABLET 200 MG PO (07:58)
[2021-04-19 08:00] VITALS: BP 135/59; PULSE 79; PULSE 87; RESP 16; TEMP 36.4; O2SAT 98
[2021-04-19] MEDS: oxyCODONE/ACETAMINOPHEN (*CRX) 5-325 MG TABLET 1 TABLET PO (08:00)
[2021-04-19] MEDS: FLUTICASONE/SALMETEROL 115-21 MCG INHALER 1 PUFF 2 PUFF INHALATION (08:07)
[2021-04-19 08:08] VITALS: PULSE 82; RESP 18; O2SAT 97
--- NOTE | 2021-04-19 09:33 | PM.DS ---
DS: Admitting Diagnosis Discharge Date 04/19/2021 Admitting Diagnosis Accidental opioid overdose DS: Discharge Diagnosis Discharge Diagnosis (1) Acute pulmonary embolism: Qualifiers: Acute cor pulmonale presence: without acute cor pulmonale Pulmonary embolism type: unspecified Qualified Code(s): I26.99 - Other pulmonary embolism without acute cor pulmonale Code(s): I26.99 - Other pulmonary embolism without acute cor pulmonale Status: Acute Assessment and Plan: CTA on presentation showed filling defects of lower lobe segmental and subsegmental pulmonary arteries consistent with PE with small thrombus burden. Venous Doppler negative for DVT bilaterally. Echocardiogram reviewed with normal EF, no evidence of heart strain. BNP was mildly elevated. [place] to be related to recent gastric bypass revision surgery on 04/13/21. Was started on therapeutic lovenox and was transitioned to Xarelto, 15 mg q12h x21 days then 20 mg daily for at least 3 months. NSAIDs discontinued. Discussed risks vs benefits of anticoagulation with patient and she was agreeable to proceed. Follow up with PCP outpatient. (2) Elevated LFTs: Code(s): R79.89 - Other specified abnormal findings of blood chemistry Status: Acute Assessment and Plan: LFTs markedly elevated. She was evaluated by PCP about 10 days ago for the same issue, however LFTs were mildly elevated at that time. Increased 6x higher this admission. Repeat RUQ US showed hepatic steatosis. Gallbladder surgically absent. No dilation of the common bile duct. LFTs did trend down during admission. This is secondary to alcohol abuse. I spoke with her PCP Dr. Purcell who will follow up on LFTs, which she should have repeated in 1 week. Hold statin until LFTs improve. (3) Opioid overdose: Code(s): T40.2X1A - Poisoning by other opioids, accidental (unintentional), initial encounter Status: Acute Assessment and Plan: Unintentional overdose. Took too much of her pain medication prescribed postoperatively following gastric bypass revision and was found by her extremely lethargic. She had symptomatic improvement following Narcan and returned back to her baseline. Discussed that she should avoid taking further pain medications as her pain was well controlled during hospitalization. Instructed that if she does take narcotics, do not take more than the prescribed dose and avoid driving, operating machinery, etc. Discussed warning signs of opioid overdose. (4) Lupus: Code(s): M32.9 - Systemic lupus erythematosus, unspecified Status: Acute Assessment and Plan: No acute issues (5) Altered mental status: Code(s): R41.82 - Altered mental status, unspecified Status: Acute Assessment and Plan: Related to opioid overdose as above (6) Alcohol abuse: Code(s): F10.10 - Alcohol abuse, uncomplicated Status: Acute Assessment and Plan: She admitted to drinking a couple bottles of wine each night. Last drink was 04/12/21 and she reports she intends to quit drinking altogether. Resources were provided. CIWA protocol initiated with scores 0-2. No signs/symptoms of alcohol withdrawal. Follow up with PCP for further alcohol cessation education. DS: Summary Hospital Course Hospital Course: Date of admission: 04/16/21 Date of discharge: 04/19/21 Olivia Zhou is a 60-year-old female with a history asthma, systemic lupus, hemolytic anemia, recent gastric bypass revision on 04/13/2021 who presented to the emergency department on 04/16/2021 after she was found poorly responsive by her . She had taken too much of her liquid hydrocodone which was prescribed following her gastric bypass revision on 04/13/[address] [facility]. On presentation to the emergency department, her vital signs were stable, she was afebrile, potassium 5.1, creatinine 1.4, additional electrolytes stable, lact
[2021-04-26 02:07] LABS: Antithrombin III Activity 75 % normal (80-135); Factor V Leiden Mutation NEGATIVE; Protein S Antigen, Free 117 % normal (50-147)
== END 2021-04-19 10:36 | disposition home or self-care (01) | DRG 205 ==
LOC: ANHED 18:58 → ANH3MED 04-17 07:46
PROVIDERS: Internal Medicine; Nurse Practitioner; Admitting Provider Hospitalist; Emergency Provider Emergency Medicine; PCP Internal Medicine; Visit Provider Physician Assistant
DX: J95.89 Other postprocedural complications and disorders of respiratory system, not elsewhere classified (principal); I26.99 Other pulmonary embolism without acute cor pulmonale; J96.01 Acute respiratory failure with hypoxia; D58.9 Hereditary hemolytic anemia, unspecified; E87.1 Hypo-osmolality and hyponatremia; M62.82 Rhabdomyolysis; T40.2X1A Poisoning by other opioids, accidental (unintentional), initial encounter; M32.9 Systemic lupus erythematosus, unspecified; F10.10 Alcohol abuse, uncomplicated; J45.909 Unspecified asthma, uncomplicated; Z98.84 Bariatric surgery status; Z98.1 Arthrodesis status; Z90.49 Acquired absence of other specified parts of digestive tract; Z90.81 Acquired absence of spleen; Z87.891 Personal history of nicotine dependence; K21.9 Gastro-esophageal reflux disease without esophagitis; E78.5 Hyperlipidemia, unspecified
CPT/HCPCS: 36415; 36600; 51701; 71045; 71275; 76705; 80053; 80307; 81001; 81240; 81241; 82550; 82805; 82948; 83605; 83735; 83880; 85025; 85027; 85300; 85301; 85303; 85306; 85610; 93306; 93970; 94618; 94640; 96360; 96361; 96372; 97161; 97165; 99285; A9270; J1650; J7030; Q9967

== ENCOUNTER 2021-09-01 13:15 | Outpatient (RCR) | payer BC, SELFPAY ==
--- NOTE | 2021-07-12 16:02 | PTOPEVAL ---
Thank you for referring Olivia Zhou to [facility].? The patient is scheduled to be seen for therapy?2 x/week for 8 weeks. Please review, sign, date and return this plan of care HARRY. I agree with and certify that the following plan of care is medically necessary. Referring Physician Date Attending Provider: Sixto Purcell MD Outpatient Past Medical History Past Medical History Source of Past Medical History Recalled from Previous Visit, Confirmed with Patient/Family Respiratory History Hx Asthma Yes Hx Sleep Apnea Yes Gastrointestinal History Hx Cholecystectomy Yes Hx Gastric Bypass Surgery Yes: 2013 Hx Gastroesophageal Reflux Disease Yes Hx Other Gastrointestinal Disorders Yes: Splenectomy, revision gastric bypass mar 2021 Musculoskeletal History Hx Arthritis Yes: right hip Hx Fractures Yes: left wrist HEENT History Hx Ear Surgery Yes: hearing aid, acoustic neuroma Psychosocial History Hx Anxiety Yes Hx Depression Yes Pain History History of Any Previous or Ongoing No Significant History Instance of Pain Anesthesia History Hx Anesthesia Reactions No Significant History Other History Hx Cancer Yes: Lupus Evaluation Information Problem Diagnosis right trochanteric bursitis and sacrococcygeal disorder Onset months Additional Evaluation Detail She was going to [employer] for 30 min circuit workout. She stopped all leg weights due to pain. She is walking on TM and UE resistance training. using ice/heat at home with Tylenol Subjective Information Increased with prolonged Query Text:As Reported By Patient/ sitting then initiating Family walking walking, rolling onto right side. Reports pain will radiated into right lower leg and back region. Reports difficulty with negotiating 2 steps at home. She has had a fall on the steps in the past. She has a history of balance issues. 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 Previous Treatments Previous Treatments For This Problem no Pain Assessment Right Hip(s) R
--- NOTE | 2021-09-01 15:30 | PTOPEVAL ---
Thank you for referring Olivia Zhou to [facility].? She was referred to therapy due to chronic right trochanteric bursitis and sacrococcygeal disorder. She has received limited visits due to out of town and difficulty with scheduling a f/u visit due to limited availability. She has received 4 therapy visits since 07/12/21. She continues to report limitation with transitioning from sit>stand, prolonged sitting, walking, steps, squatting, sleeping on right side, prolonged standing,and daily task. She continues to demonstrate elier LE weakness, decreased and painful hip motion, posture and gt impairment, and poor functional movements. LEFS: 63.75% impaired at eval and 55% impaired at update. Assessment: Olivia presents to therapy with therapy impairment of force production impairment with muscle weakness and functional movement impairment. She demonstrate limited progress with therapy due to limited visits received due to her vacation and limited availability of open schedules for a re-eval. She demonstrates limited progress towards goals. She requires additional skilled therapy services to address her significant limitations, improved her function and provide skilled teaching to improve her function and progress her HEP. The patient is scheduled to be seen for therapy? 2x/week for 8 weeks. Please review, sign, date and return this plan of care HARRY. I agree with and certify that the following plan of care is medically necessary. Referring Physician Date Attending Provider: Sixto Purcell MD Diagnosis right trochanteric bursitis and sacrococcygeal disorder Onset months Additional Evaluation Detail She was going to [employer] for 30 min circuit workout. She stopped all leg weights due to pain. She is walking on TM and UE resistance training. using ice/heat at home with Tylenol Subjective Information Reports the pain is getting Query Text:As Reported By Patient/ worse with right knee pain and Family left hip pain. She is not tolerating her HEP. She did get a steroid treatment for 1 week with improved pain and symptoms. She expresses frustration with not having her call returned to schedule her re-eval. She remains limited with all activities including prolonged sitting, walking and daily task. rolling onto right side. She was able to [place] steps on vacation due to taking prednisone, but increased pain now that she is off the medication.
--- NOTE | 2021-09-12 11:47 | PCPTNOTE ---
Patient called & cancelled scheduled appointment this date due to has an appointment with a pain management
--- NOTE | 2021-09-15 13:04 | PCPTNOTE ---
Admitting Provider: Attending Provider: Sixto Purcell MD Patient:Olivia Zhou Date of :1960 Physical Therapy Discharge Summary Patient has not returned for any further treatments since 09/01/2021, therefore she will be discharged at this time. She called to cancel her remaining visits due to follow up with a pain management doctor. Patient?s initial visit was on 07/12/2021 15:00 and she had a total of 5 visits with multiple weeks of out of town and unable to schedule. The goals have been not met. Thank you for referring this patient to [facility]. Please review, sign, date and return this discharge summary HARRY. I have been updated about the patient's current status and I agree with discharge from the above service at this time. Referring Physician Date
== END 2021-09-15 16:20 | disposition home or self-care (01) ==
LOC: ANHPT 13:15
PROVIDERS: PCP Internal Medicine; Visit Provider Internal Medicine
DX: M70.61 Trochanteric bursitis, right hip (principal); M53.3 Sacrococcygeal disorders, not elsewhere classified
CPT/HCPCS: 97110; 97112; 97162; 97530

== ENCOUNTER → 2021-10-07 11:52 | Outpatient (CLI) | payer BC, SELFPAY ==
--- NOTE | ~2021-10-07 | MR_ITS ---
EXAMINATION: MR lumbar spine wo con DATE: 10/07/2021 12:31 INDICATION: Lumbar radiculopathy. Low back pain. TECHNIQUE: Magnetic resonance imaging (MRI) of the lumbar spine was performed without intravenous con trast. Sequences included sagittal T2-weighted FSE, sagittal T2-weighted FS FSE, sagittal T1-weighted FSE, and axial T2-weighted FSE. COMPARISON: None FINDINGS: Bone alignment is normal. Vertebral body heights are normal. There is mildly decreased disc height at L1-L2. There is ligamentum flavum hypertrophy at the lumbar disc levels. The distal spinal cord signal intensity is normal. The conus medullaris is at L1. The following disc levels are specif ically discussed: L1-L2: The disc is bulging. There is mild bilateral facet joint osteoarthritis. There is mild right n eural foraminal stenosis. There is mild central canal stenosis. L2-L3: The disc is bulging. There is mild bilateral facet joint osteoarthritis. There is mild bilater al neural foraminal stenosis. There is no central canal stenosis. L3-L4: The disc is mildly bulging. There is moderate bilateral facet joint osteoarthritis. There is m ild bilateral neural foraminal stenosis. There is no central canal stenosis. L4-L5: There is a left foraminal protrusion. There is severe bilateral facet joint osteoarthritis. Th ere is mild left neural foraminal stenosis. There is no central canal stenosis. L5-S1: The disc is mildly bulging. There is severe bilateral facet joint osteoarthritis. There is mil d bilateral neural foraminal stenosis. There is mild central canal stenosis. IMPRESSION: 1. Mild lumbar spondylosis. Reviewed, dictated and finalized at location A. IMPRESSION: 1. Mild lumbar spondylosis.
== END ==
PROVIDERS: PCP Internal Medicine; Visit Provider Nurse Practitioner Family
DX: M54.16 Radiculopathy, lumbar region (principal); M43.06 Spondylolysis, lumbar region
CPT/HCPCS: 72148

== ENCOUNTER → 2021-10-24 13:45 | Outpatient (CLI) | payer BC, SELFPAY ==
--- NOTE | ~2021-10-24 | US_ITS ---
EXAMINATION: US renal BI DATE: 10/24/2021 14:15 INDICATION: Acquired cystic kidney TECHNIQUE: Multiple grayscale and Doppler ultrasound images of the kidneys were obtained. COMPARISON: 04/18/2021; CT, 04/16/2021 FINDINGS: The right kidney measures 11.2 x 5.0 x 5.6 cm and contains a 1.5 cm cyst. The left kidney m easures 11.1 x 4.7 x 6.0 cm. The kidneys demonstrate normal parenchymal echogenicity. Splenules are n oted in the left upper quadrant. There is no hydronephrosis. The bladder is normal. IMPRESSION: 1. Normal kidneys without hydronephrosis. Reviewed, dictated and finalized at location A.
== END ==
PROVIDERS: PCP Internal Medicine; Visit Provider Internal Medicine
DX: N28.1 Cyst of kidney, acquired (principal)
CPT/HCPCS: 76775

== ENCOUNTER → 2021-11-03 14:48 | Outpatient (CLI) | payer BC, SELFPAY ==
--- NOTE | ~2021-11-03 | CT_ITS ---
EXAMINATION: CT abdomen pelvis wo/w con DATE: 11/03/2021 15:21 INDICATION: Periumbilical abdominal pain. History of splenectomy and revision of gastric bypass. TECHNIQUE: Computed tomography (CT) of the abdomen and pelvis was performed without and subsequently with 100 CC Omnipaque 300 intravenous contrast. Automated exposure control and iterative reconstructi on technique were employed. Exam dose: 1129.75 mGy-cm total exam DLP. COMPARISON: 10/24/2021 bilateral renal ultrasound 04/18/2021 Limited abdominal ultrasound examination 04/16/2021 CT abdomen scan 03/03/2021 complete abdominal ultrasound examination FINDINGS: The lung bases are clear. Normal heart size. No pericardial or pleural effusion. Small sliding hiatal hernia. Postoperative changes of the stomach. Status post cholecystectomy. No hepatic space-occupying mass lesion or bile duct dilatation. No pancreatic mass lesion or ductal d ilatation is detected. No pancreatic calcification. Contiguous 6.3 and 4.1 cm soft tissue densities in the posterior left upper abdomen beneath the diaph ragm may represent accessory splenules; these are stable since 04/16/2021 CT pulmonary scan.. There i s some prominent amorphous calcification above soft tissue masses. There are surgical clips in the le ft upper quadrant the urinary bladder are likely related to the history of splenectomy.. Normal morphology of the adrenal glands. Approximately 12 mm cortical cyst of the right kidney upper pole and probable much smaller cortical c yst at the posterior mid to lower right kidney. No left renal mass lesion is evident on this limited noncontrast examination. No urinary tract calculus or hydroureteronephrosis is detected. There is atherosclerotic calcification but normal caliber of the abdominal aorta. No intraperitoneal or retroperitoneal mass lesion or adenopathy or ascites is detected. No suspicious osteolytic or osteoblastic lesions. IMPRESSION: Status post cholecystectomy Status post gastric bypass Status post splenectomy, with probable prominent left upper quadrant splenules, stable since 04/16/20 21 Probable right renal cysts Reviewed, dictated and finalized at [facility]. Reviewed, dictated and finalized at location A. IMPRESSION: Status post cholecystectomy Status post gastric bypass Status post splenectomy, with probable prominent left upper quadrant splenules, stable since 04/16/2021 Probable right renal cysts
== END ==
PROVIDERS: PCP Internal Medicine
DX: R10.33 Periumbilical pain (principal); Z98.84 Bariatric surgery status; Z90.49 Acquired absence of other specified parts of digestive tract
CPT/HCPCS: 74178; Q9967

== ENCOUNTER → 2022-02-23 11:05 | Outpatient (CLI) | payer BC, SELFPAY ==
--- NOTE | ~2022-02-23 | DEXA_ITS ---
Bone Density Report Name: CASSIE BELL Age: 61 Sex: Female Ethnicity: White Date of : 1960 Indication: postmenopausal osteoporosis; height loss; history of glucocorticoids; Referring Provider: Maria Alejandra, Carli Richmond Study: Bone densitometry was performed. Exam Date: February 23, 2022 Accession number: [id number] Bone Density: Region BMD T-score Z-score Classification AP Spine (L1-L4) 0.750 -2.7 -1.3 Osteoporosis Femoral Neck (Left) 0.605 -2.2 -0.9 Osteopenia Total Hip (Left) 0.744 -1.6 -0.7 Osteopenia Femoral Neck (Right) 0.566 -2.5 -1.3 Osteoporosis Total Hip (Right) 0.767 -1.4 -0.5 Osteopenia Total Hip Mean 0.756 -1.5 -0.6 Osteopenia World Health Organization criteria for BMD impression classify patients as: Normal (T-score at or above -1.0), Osteopenia (T-score between -1.0 and -2.5), or Osteoporosis (T-score at or below -2.5). 10-year Fracture Risk: FRAX not reported because: Some T-score for Spine Total or Hip Total or Femoral Neck at or below -2.5 Previous Exams: Region Exam Age BMD T-score BMD Change BMD Change Date g/cm2 vs Baseline vs Previous AP Spine(L1-L4) 02/23/2022 61 0.750 -2.7 -0.166* -0.027* 12/25/2018 58 0.777 -2.5 -0.140* -0.123* 05/25/2015 54 0.900 -1.3 -0.017 -0.017 04/27/2011 50 0.917 -1.2 Total Hip(Left) 02/23/2022 61 0.744 -1.6 -0.157* -0.047* 12/25/2018 58 0.792 -1.2 -0.110* -0.089* 05/25/2015 54 0.881 -0.5 -0.021 -0.021 04/27/2011 50 0.902 -0.3 Total Hip(Right) 02/23/2022 61 0.767 -1.4 -0.144* -0.038* 12/25/2018 58 0.805 -1.1 -0.105* -0.097* 05/25/2015 54 0.903 -0.3 -0.008 -0.008 04/27/2011 50 0.911 -0.3 *Denotes significance at 95% confidence level, LSC for AP Spine = 0.022 g/cm2, LSC for Total Hip = 0.027 g/cm2 Clinical Information Provided by Patient: Has taken Glucocorticoids Has used the following medications: Vitamin D, Calcium, MTV Patient maximum height was 66 Menopause Age: 51 No regular weight bearing exercise Drinks caffeinated beverages Onset of menses at age 14 Number of children 4 Impression: The patient has osteoporosis, based on the Total Spine T-score. The patient has risk factors, including: history of glucocorticoid therapy. The BMD for the AP Spine(L1-L4) decreased, changing by -0.027 sin
== END ==
PROVIDERS: PCP Internal Medicine; Visit Provider Nurse Practitioner Obstetrics & Gynecology
DX: Z78.0 Asymptomatic menopausal state (principal); M85.89 Other specified disorders of bone density and structure, multiple sites; M81.0 Age-related osteoporosis without current pathological fracture
CPT/HCPCS: 77080

== ENCOUNTER → 2022-03-21 09:45 | Outpatient (CLI) | payer BC, SELFPAY ==
--- NOTE | ~2022-03-21 | MM_ITS ---
EXAMINATION: MM screening jet BI w wil HISTORY: Screening mammogram TECHNIQUE: Craniocaudal and mediolateral oblique 3-D tomosynthesis images were obtained and synthetic 2-D images were generated. CAD analysis was submitted and interpreted. COMPARISON: 03/18/2021, 01/15/2020, 12/25/2018 bilateral screening mammogram examinations BREAST PARENCHYMAL COMPOSITION: There are scattered areas of fibroglandular density. FINDINGS: There is no evidence of suspicious mass, calcification, or architectural distortion to sugg est malignancy in either breast. There has been no suspicious interval change. IMPRESSION: 1. No mammographic evidence of malignancy. 2. Recommend routine screening mammography in one year. BI-RADS Category 1: Negative Reviewed, dictated and finalized at location A. R POOL CLERK
== END ==
PROVIDERS: PCP Internal Medicine; Visit Provider Nurse Practitioner Obstetrics & Gynecology
DX: Z12.31 Encounter for screening mammogram for malignant neoplasm of breast (principal)
CPT/HCPCS: 77063; 77067

== ENCOUNTER → 2022-06-05 14:35 | Outpatient (CLI) | payer BC, SELFPAY ==
--- NOTE | ~2022-06-05 | US_ITS ---
EXAMINATION: US venous doppler [facility] DATE: 06/05/2022 15:01 INDICATION: Left lower limb swelling. Other specified soft tissue disorders. TECHNIQUE: Grayscale ultrasound images without and with compression and Doppler ultrasound images of the left lower extremity veins were obtained. COMPARISON: Ultrasound 04/16/2021 FINDINGS: The visualized portions of left common femoral vein, profunda (deep) femoral vein, femoral vein, popl iteal vein, peroneal veins, posterior tibial veins, and greater saphenous vein outflow are patent. IMPRESSION: 1. No deep venous thrombosis. Reviewed, dictated and finalized at location A. HER SPRAYER
== END ==
PROVIDERS: PCP Nurse Practitioner; Visit Provider Nurse Practitioner
DX: M79.89 Other specified soft tissue disorders (principal)
CPT/HCPCS: 93971

== ENCOUNTER → 2023-03-26 10:17 | Outpatient (CLI) | payer BC, SELFPAY ==
--- NOTE | ~2023-03-26 | MM_ITS ---
EXAMINATION: MM screening jet BI w wil HISTORY: Screening mammogram TECHNIQUE: Craniocaudal and mediolateral oblique 3-D tomosynthesis images were obtained and synthetic 2-D images were generated. CAD analysis was submitted and interpreted. COMPARISON: 03/21/2022, 03/18/2021, 01/15/2020 bilateral screening mammogram examinations BREAST PARENCHYMAL COMPOSITION: There are scattered areas of fibroglandular density. FINDINGS: There is no evidence of suspicious mass, calcification, or architectural distortion to sugg est malignancy in either breast. There has been no suspicious interval change. IMPRESSION: 1. No mammographic evidence of malignancy. 2. Recommend routine screening mammography in one year. BI-RADS Category 1: Negative Reviewed, dictated and finalized at location A. NSED OCCUPATIONAL THERAPY ASSISTANT
== END ==
PROVIDERS: PCP Nurse Practitioner; Visit Provider Nurse Practitioner Obstetrics & Gynecology
DX: Z12.31 Encounter for screening mammogram for malignant neoplasm of breast (principal)
CPT/HCPCS: 77063; 77067

== ENCOUNTER 2024-04-16 11:01 | Outpatient (CLI) | payer BC, SELFPAY ==
--- NOTE | ~2024-04-16 | DEXA_ITS ---
Bone Density Report Name: CASSIE BELL Age: 63 Sex: Female Ethnicity: White Date of : 1960 Indication: postmenopausal; screening for osteoporosis; height loss; Referring Provider: FORREST BURNS Study: Bone densitometry was performed. Exam Date: April 16, 2024 Accession number: [id number] Bone Density: Region BMD T-score Z-score Classification AP Spine(L1-L4) 0.795 -2.3 -0.7 Osteopenia Femoral Neck (Left) 0.623 -2.0 -0.6 Osteopenia Total Hip (Left) 0.705 -1.9 -0.9 Osteopenia Femoral Neck (Right) 0.576 -2.5 -1.1 Osteoporosis Total Hip (Right) 0.713 -1.9 -0.8 Osteopenia Total Hip Mean 0.709 -1.9 -0.9 Osteopenia World Health Organization criteria for BMD impression classify patients as: Normal (T-score at or above -1.0), Osteopenia (T-score between -1.0 and -2.5), or Osteoporosis (T-score at or below -2.5). 10-year Fracture Risk: FRAX not reported because: Some T-score for Spine Total or Hip Total or Femoral Neck at or below -2.5 Clinical Information Provided by Patient: Has used the following medications: Vitamin D, Calcium Has the following medical conditions: lupus Patient maximum height was 66 No regular weight bearing exercise Drinks caffeinated beverages Onset of menses at age 14 Number of children 4 Impression: The patient has osteoporosis, based on the Right Femoral Neck T-score. Discussion: INCREASED RISK OF FRACTURE. BONE DENSITY IS UNDESIRABLY LOW AT ONE OR MORE SKELETAL SITES, CONSISTENT WITH POSTMENOPAUSAL OSTEOPOROSIS. This patient's lowest T-score meets the World Health Organization's (WHO) criteria for osteoporosis at one or more sites (T-score -2.5 or below). In untreated patients, the risk of osteoporotic fracture increases approximately two-fold for each 1.0 SD decrease in T-score. Low bone density is not the only risk factor for fracture; also consider factors such as patient's age, frailty or poor health, risk of falling, risk of injury, previous osteoporotic fracture, family history of osteoporosis, cigarette smoking, low body weight, etc. Not everyone with low bone mineral density has osteoporosis; osteomalacia and other metabolic bone disorders should also be considered. Patients who have osteoporosis should be evaluated for specific diseases and conditions (secondary causes) that may cause or contribute to bone loss. The [place] [employer] Clinical Endocrinologists (AACE) and National Osteoporosis Foundation (NOF) recommend pharmacologic intervention for all postmenopausal women whose T-score is in this range. The patient should follow a healthful lifestyle (good nutrition with adequate calcium and vitamin D, and appropriate weight-bearing exercise). Follow-Up: Consider a repeat BMD and Vertebral Fracture Assessment (VFA) exam in 2 years or sooner if medically necessary, to reassess this patient's status. Reported by: MERYL on 04/16/2024 11:31:00 AM. Reviewed, dictated and finalized at location AKelvin ROONEY
== END 2024-04-16 11:02 | disposition home or self-care (01) ==
LOC: ANHIMG 11:02
PROVIDERS: PCP Nurse Practitioner; Visit Provider Nurse Practitioner
DX: M81.0 Age-related osteoporosis without current pathological fracture (principal); M85.89 Other specified disorders of bone density and structure, multiple sites
CPT/HCPCS: 77080

== ENCOUNTER 2024-04-16 11:31 | Outpatient (CLI) | payer BC, SELFPAY ==
--- NOTE | ~2024-04-16 | XR_ITS ---
XR hip LT min 2V 04/16/2024 11:40 Indication: Left hip pain Procedure: 2 views left hip Comparison: 06/11/2020 Findings: The there is mild osteoarthritis of the left hip. No fracture or traumatic malalignment. Jasmine rrounding soft tissues and osseous structures are unremarkable. Impression: 1: Mild osteoarthritis of the left hip. Reviewed, dictated and finalized at location B. TY SHERIFF Impression: 1: Mild osteoarthritis of the left hip.
== END 2024-04-16 11:32 | disposition home or self-care (01) ==
LOC: MICIMG 11:31
PROVIDERS: PCP Nurse Practitioner; Visit Provider Nurse Practitioner
DX: M16.12 Unilateral primary osteoarthritis, left hip (principal)
CPT/HCPCS: 73502

== ENCOUNTER 2024-05-03 08:31 | Outpatient (CLI) | payer BC, SELFPAY ==
--- NOTE | ~2024-05-03 | MR_ITS ---
MRI of the lumbar spine Clinical History: Radiculopathy, back pain Technique: Axial T2-weighted images, and sagittal T1-weighted, T2-weighted, and T2 fat-sat images wer e acquired. COMPARISON: 10/07/2021 Findings: There is no fracture or subluxation of the lumbar spine. Vertebral bodies maintain normal h eight and alignment. No suspicious bone marrow signal abnormality seen. At L1-L2, there is mild to moderate degenerative disc narrowing. There is minimal disc bulge with mod erate facet arthropathy. No central canal stenosis. Probable mild bilateral neural foraminal narrowin g. At L2-L3, there is minimal disc bulge with moderate to advanced facet arthropathy. There is mild to m oderate central canal stenosis/thecal sac compression. There is minimal bilateral neural foraminal na rrowing. L3-L4, there is minimal disc bulge with moderate to advanced facet arthropathy. There is moderate masoud tral canal stenosis/thecal sac compression. Neural foramina are preserved. At L4-L5, there is mild disc bulge with severe facet arthropathy. There is [id number] central c anal stenosis. Neural foramina are preserved. At L5-S1, there is minimal disc bulge with advanced facet arthropathy. There is no chika central cristian l stenosis or neural foraminal narrowing. Paravertebral soft tissues are unremarkable. Impression: Moderate to advanced degenerative spondylosis, as above. Reviewed, dictated and finalized at [facility]. ER PULLER Impression: Moderate to advanced degenerative spondylosis, as above.
== END 2024-05-03 08:32 | disposition home or self-care (01) ==
LOC: MICIMG 08:33
PROVIDERS: PCP Nurse Practitioner; Visit Provider Nurse Practitioner
DX: M25.551 Pain in right hip (principal); M25.552 Pain in left hip; M47.26 Other spondylosis with radiculopathy, lumbar region
CPT/HCPCS: 72148

== ENCOUNTER 2024-05-08 07:22 | Outpatient (CLI) | payer BC, SELFPAY ==
--- NOTE | ~2024-05-08 | MM_ITS ---
EXAMINATION: MM screening [facility] BI w wil HISTORY: Screening TECHNIQUE: Craniocaudal and mediolateral oblique 3-D tomosynthesis images were obtained and synthetic 2-D images were generated. CAD analysis was submitted and interpreted. COMPARISON: Comparison to multiple prior studies sequentially, with oldest reviewed study dated 12/25. BREAST PARENCHYMAL COMPOSITION: Not dense: There are scattered areas of fibroglandular density. FINDINGS: There is no evidence of suspicious mass, calcification, or architectural distortion to sugg est malignancy in either breast. There has been no suspicious interval change. IMPRESSION: 1. No mammographic evidence of malignancy. 2. Recommend routine screening mammography in one year. BI-RADS Category 1: Negative Reviewed, dictated and finalized at location B. TOCK SPRAY UNIT FEEDER
== END 2024-05-08 07:23 | disposition home or self-care (01) ==
PROVIDERS: PCP Nurse Practitioner; Visit Provider Nurse Practitioner Obstetrics & Gynecology
DX: Z12.31 Encounter for screening mammogram for malignant neoplasm of breast (principal)
CPT/HCPCS: 77063; 77067

== ENCOUNTER 2024-08-25 12:29 | Outpatient (RCR) | payer BC, SELFPAY ==
--- NOTE | 2024-08-25 14:35 | OPREHPOC ---
Outpatient Therapy Plan of Care This is a Multidisciplinary Plan of Care that may contain components documented by all disciplines (PT, OT, and ST.) PT Problem 1 PT Problem #1 Knowledge Deficit PT Goal 1 Goal / Goal Update 1. Pt to be IND with issued HEP Target Visit 8 PT Problem 2 PT Problem #2 Pain PT Goal 1 Goal / Goal Update 1. pt to report leg pain no greater than 4/10 in the last week, 2. Pt to report 30% improvement on the LEFS Target Visit 8 PT Problem 3 PT Problem #3 Impaired Functional Mobility PT Goal 1 Goal / Goal Update 1. pt to be able to walk for 10 mins for exercise without an increase in pain 2. Pt to be able to perform a floor <> stand transfer to be able to play with her grandchildren Target Visit 8 PT Problem 4 PT Problem #4 Impaired Strength PT Goal 1 Goal / Goal Update 1. Pt to improve global elier hip strength to 4/5 Target Visit 8
--- NOTE | 2024-08-25 14:36 | PTOPEVAL1 ---
Assessment and note entered by Maryellen Nielson, PT, DPT Evaluation Information Assessment Status Evaluation Diagnosis L hip pain, bursitis ICD-10 Condition Codes (PT) Pain in left hip M25.552 Other ICD-10 Condition Codes ( M70.62 PT) Subjective Information Pt states a history of R hip and low back pain, she was treated with cortisone injections and is feeling okay now. States her L hip has started to bother her, states she needs an MRI to see what is going on. Is also seeing pain management for her low back, has spinal stenosis. Has not done any therapy for her back. States she gets muscle spasms and sharp pains that go down her leg. Activity increases her pain. Reported Pain Level Pain Score 6,5: Self Report Assessment PT Clinical Summary Pt presents to therapy today for her initial evaluation with a diagnosis of L hip pain. Today she demonstrates decreased hip strength elier in all planes of motion as well as decreased L hip ROM with increase pain reports at end ROM. She ambulates with an antalgic pattern, shorted stride length, and decreased gait speed d/t pain. Skilled therapy services are indicated to address the deficits noted above, to manage pain, and to return to PLOF. Plan of Care Interventions Electrical Stimulation,Gait Training,Hot Pack/Cold Pack,Manual Therapy,Neuro Re-education,Patient/ Caregiver Education,Therapeutic Activities, Therapeutic Exercise PT Services Indicated Yes Treatment Frequency and 2x/wk for 8 visits Duration These treatments will address the objective and functional deficits as defined above. The patient will be advanced safely and appropriately in order for the patient to progress towards his/her prior level of function. Additional exercises will be introduced and as well as a comprehensive home exercise program upon discharge, if needed, ?to ensure carryover of functional gains achieved in the clinic. This treatment plan has been reviewed and agreement upon by the patient.
--- NOTE | 2024-08-29 11:25 | PCPTNOTE ---
Patient cancelled her appointment and requested to discharge as her hip is more painful than it was initially and her MD wants her to stop therapy and get an MRI at this time.
--- NOTE | 2024-08-29 12:39 | PTOPDC ---
Assessment and note entered by William Alvarado, PT Evaluation Information Assessment Status Discharge - Pt Not Present Diagnosis L hip pain, bursitis ICD-10 Condition Codes (PT) Pain in left hip M25.552 Other ICD-10 Condition Codes ( M70.62 PT) Subjective Information Patient contacted clinic stating that she feels the therapy is making it worse. She spoke with her MD and she will be receiving an MRI at this time. Wants to cancel T with MD permission. Assessment PT Clinical Summary Patient to be discharged from skilled therapy at this time per patient request. Please refer to evaluation for patient status. Plan of Care PT Services Indicated Yes
== END 2024-08-29 13:00 | disposition home or self-care (01) ==
LOC: ANHGOSHPT 12:29
PROVIDERS: PCP Internal Medicine; Visit Provider Orthopaedic Surgery
DX: M70.62 Trochanteric bursitis, left hip (principal)
CPT/HCPCS: 97110; 97161

== ENCOUNTER 2024-09-29 11:13 | Outpatient (CLI) | payer BC, SELFPAY ==
--- NOTE | ~2024-09-29 | MR_ITS ---
MRI of the left hip Clinical history: Trochanteric bursitis Technique: Coronal T1-weighted, T2-weighted, and proton-density fat-sat images, and axial T1-weighted and proton-density fat-sat images were acquired through the pelvis. Coronal T2-weighted images and c oronal, axial, and sagittal proton-density fat-sat images were acquired through the left hip. Findings: There is extensive marrow edema in the left femoral head and neck with probable subchondral sufficiency fracture at the super aspect of the femoral head. There is extensive high-grade chondrom alacia the left hip joint. There are small left hip joint effusion, likely reactive. There are minima l femoral head neck junction osteophytes. Right hip joint demonstrate moderate to high-grade diffuse chondral thinning, especially medially. Th ere is minimal right hip joint effusion, likely reactive. SI joints are intact bilaterally. Visualized musculature about the pelvis and left hip is unremarkable. No muscle edema or asymmetric a trophy. Visualized tendons are intact. No soft tissue mass or fluid collection evident. IMPRESSION: Left femoral head subchondral insufficiency fracture with extensive reactive marrow edema of the left femoral head and neck. Underlying degenerative changes of bilateral hip joints, left worse than right. Bilateral hip joint effusions, likely reactive. Reviewed, dictated and finalized at location . IMPRESSION: Left femoral head subchondral insufficiency fracture with extensive reactive ma rrow edema of the left femoral head and neck. Underlying degenerative changes of bilateral hip joints, left worse than right. Bilateral hip joint effusions, likely reactive.
== END 2024-09-29 11:14 | disposition home or self-care (01) ==
PROVIDERS: PCP Internal Medicine; Visit Provider Orthopaedic Surgery
DX: R93.7 Abnormal findings on diagnostic imaging of other parts of musculoskeletal system (principal); M84.352A Stress fracture, left femur, initial encounter for fracture; R60.9 Edema, unspecified; M16.0 Bilateral primary osteoarthritis of hip; M25.452 Effusion, left hip; M25.451 Effusion, right hip; M70.62 Trochanteric bursitis, left hip
CPT/HCPCS: 73721

== ENCOUNTER 2024-10-14 12:10 | Emergency (ER) | payer BC, SELFPAY ==
--- NOTE | ~2024-10-14 | XR_ITS ---
XR knee RT 3V Ordering provider: Angelina Gandara APRN History: . right knee pain onset today w/o injury . Comparison: None. FINDINGS: BONES: No acute fracture or dislocation. JOINT SPACES: Normal. SOFT TISSUES: Normal. IMPRESSION: No acute osseous abnormality right knee. Reviewed, dictated and finalized at location A.
--- NOTE | 2024-10-14 12:16 | ED.LOWEXIN ---
HPI - Extremity Injury (Lower) General Chief Complaint: Extremity Injury, Lower Stated Complaint: Right Knee Pain Source: patient and RN notes reviewed Mode of arrival: ambulatory Limitations: no limitations History of Present Illness HPI Narrative: Patient is a 63-year-old female who presents to the [facility] with complaints of right knee pain. Patient states that she is scheduled to have a left hip arthroplasty and November of this year. She states that to to her chronic left hip pain, she believes she over compensates on the right leg. She states that she went to take a on level ground when she heard a loud pop in her right knee. She states that she had sudden onset of pain following a pop. She reports decreased range of motion and mild swelling at this time. The pain is exacerbated when bearing weight or ambulating. She is neurovascularly intact distally. Sensation intact. Related Data Home Medications ?Medication ?Instructions ?Recorded ?Confirmed ?Last Taken ?Type sertraline 100 mg tablet (Zoloft) 200 mg PO DAILY 07/16/19 10/06/24 04/15/21 History amitriptyline 50 mg tablet 50 mg PO HS 02/04/20 10/06/24 04/15/21 History aripiprazole 2 mg tablet (Abilify) 4 mg PO DAILY 09/21/20 10/06/24 04/15/21 History clonazepam 2 mg tablet 2 mg PO BID PRN Anxiety 01/13/21 10/06/24 04/15/21 History omeprazole 20 mg tablet,delayed 20 mg PO DAILY 01/09/22 10/06/24 Unknown History release zolpidem 10 mg tablet (Ambien) 20 mg PO HS Insomnia 01/09/22 10/06/24 Unknown History hydroxychloroquine 100 mg tablet 200 mg PO DAILY 05/15/24 10/06/24 Unknown History Allergies Allergy/AdvReac Type Severity Reaction Status Date / Time metoclopramide AdvReac Severe ANXIETY Verified 10/14/24 12:12 Review of Systems Review of Systems: CONSTITUTIONAL: Denies fever, chills, or sweats. EYES: Denies visual changes, redness, or discharge. ENT: Denies otalgia and sore throat CARDIOVASCULAR: Denies chest pain, palpitations, or edema. RESPIRATORY: Denies cough or dyspnea. GASTROINTESTINAL: Denies abdominal pain, nausea, vomiting, or diarrhea. GENITOURINARY: Denies dysuria or hematuria. SKIN: Denies rash or itching. MUSCULOSKELETAL: Reports right knee pain. NEUROLOGIC: Denies headache, numbness, or weakness. Pertinent positives per HPI. [facility] Past Medical History Medical History Lumbar radiculopathy Lumbar spondylosis Toe fracture, right Anxiety Hemolytic anemia Chronic ITP (idiopathic thrombocytopenia) Systemic lupus Discoid lupus Asthma Wears glasses Vision changes Weight gain Toe fracture, left Surgical History Surgical History History of surgery Suboccipital surgery for acoustic neuroma History of gastric bypass 2014 Revision [place] [address] Logan Solorio History of removal of laparoscopic gastric banding device 2007, 2008 History of cervical discectomy with fusion, 2006 History of breast lift History of abdominoplasty 2000, 2006 Personal history of gastric banding 2002, 2007 History of incisional hernia repair x2 most recent in [address] Logan Solorio Hx of cholecystectomy Hx of splenectomy 1982 Family History Family History Father Family history of obesity Depression Patient's father is in good health Mother Family history of obesity Depression Patient's mother is in good health Family history of diabetes mellitus in first degree relative Family history of irritable bowel syndrome Hypertension Family history of elevated blood lipids Grandparent Family history of mental disorder Family history of alcoholism Family history of Alzheimer's disease Diabetes mellitus Family history of malignant neoplasm of stomach Family history of heart disease in male family member before age 55 Family history of cardiovascular disease Family history of hepatitis Sibling Patient's sister is in good health Patient's brother is in good health Family history of learning disability Other Heart disease Social History Social History Smoking packs per day: 1 Smoking cigarettes per day: 20.0 Years smoked: 2 Smoking pack-years: 2.00 Smoking status: Never smoker Second hand tobacco smoke exposure: No Smoking end date: 04/30/84 Alcohol intake: current Drinks per week: 3 Substance use: never Substance use type: does not use Lack of Transportation: No Lack of Food: Never True Current Housing: I Have Housing Concerned About Future Housing: No Difficulty Paying Gas/Electric Bills: No Difficulty Paying for Meds: No Currently Unemployed: No Education: Bachelor's Degree Difficulty w/ Childcare or Family Care: No Living arrangements: with family Gender identity (if verbalized by the patient): Female Spiritual care concerns: No Comments At the time of my signature, I reviewed and agree with the nursing past medical, surgical, social, and family history. There is no relevant family history pertinent to the patient complaint. Exam Narrative: GENERAL: This is a well-nourished, well-developed patient, in no apparent distress. HEAD: normocephalic, atraumatic. EYES: PERRL. Sclera clear/white. Vision is grossly intact. EARS: External ears normal, auditory canals clear and without drainage, TMs normal without perforation. Hearing grossly intact. NOSE: External nose normal with no obvious nasal discharge, nares without redness, no rhinorrhea. THROAT: Mucous membranes moist, posterior pharynx clear. NECK: Neck supple, non-tender without lymphadenopathy, masses or thyromegaly. CARDIOVASCULAR: Regular rate and rhythm without murmurs, gallops, or rubs. RESPIRATORY: Clear to auscultation. Breath sounds equal bilaterally. No wheezes, rales, or rhonchi. GASTROINTESTINAL: Abdomen soft, non-tender, nondistended. Bowel sounds are active. No hepato-splenomegaly, or palpable masses. No guarding. SKIN: warm, intact with no suspicious lesions or rash, good texture and turgor. NEURO: awake, alert, and oriented to person, place and time. There were no obvious focal neurologic abnormalities. EXTREMITIES: Patient is able to bear weight and ambulate but it causes her pain. No surface of trauma or obvious effusion. No overlying erythema or warmth. The R knee is with/without obvious asymmetry or deformity when comparing to the L. Distal motor and neurovascular status intact. Course Course Level of Care: Express Care Visit Vital Signs Vital signs: Vital Signs Temperature 97.7 F 10/14/24 12:17 Pulse Rate 71 10/14/24 12:17 Respiratory Rate 16 10/14/24 12:17 Blood Pressure 144/88 H 10/14/24 12:17 Pulse Oximetry 98 10/14/24 12:17 Oxygen Delivery Room Air 10/14/24 12:17 Temperature 97.7 F 10/14/24 12:17 Pulse Rate 71 10/14/24 12:17 Respiratory Rate 16 10/14/24 12:17 Blood Pressure 144/88 H 10/14/24 12:17 Pulse Oximetry 98 10/14/24 12:17 Oxygen Delivery Room Air 10/14/24 12:17 Reviewed Procedures Orthopedic Splinting/Casting Injury #1: Splinting/Casting Date: 10/14/24 Splinting/Casting Time: 12:50 Side: right Lower Extremity Injury Location: knee Lower Extremity Immobilizer: knee immobilizer Splint: prefabricated Pre-Formed: knee immobilizer Pre-Procedure Neuro Vascular Exam: normal Post-Procedure Neuro Vascular Exam: normal Additional Comments: Declined crutches as she uses cane currently MDM - Extremity Injury (Lower) MDM Narrative Medical decision making narrative: Minimize activities that aggravate the condition, such as climbing stairs. Switching from high impact activities (like jogging or tennis) to lower impact activities (like swimming or cycling) will put less stress on your knee. Use the RICE method at home. May take ibuprofen and/or Tylenol if needed. If symptoms persist in 1 week after conservative treatment, follow-up with specialist. Differential Diagnosis Differential diagnosis: Likely acute internal derangement of knee and other (patellar fracture, knee sprain) Imaging Data Attestation: I personally reviewed and interpreted this imaging study as follows: Radiologist's impression: Close Knee X-Ray (Signed) Vito Felix - 10/14/24 Launch?[facility] [address] [place] [address] XRay Report Signed Patient: Olivia Zhou : 1960 MR#: [id number] Age: 63 Acct:[id number] Loc: [facility] ADM Date: 10/14/24Attending Dr: Ordering Physician: Angelina Gandara APRN Date of Service: 10/14/24 Procedure(s): XR knee RT 3V Accession Number(s): [id number] cc: Angelina Gandara APRN; Austin Joseph DO~ XR knee RT 3V Ordering provider: Angelina Gandara APRN History: . right knee pain onset today w/o injury . Comparison: None. FINDINGS: BONES: No acute fracture or dislocation. JOINT SPACES: Normal. SOFT TISSUES: Normal. IMPRESSION: No acute osseous abnormality right knee. Reviewed, dictated and finalized at location A. Please be advised this is a medical document. It is intended for [id number] communication. It is written in medical language and may contain unfamiliar abbreviations or verbiage. Medical documents are intended to carry relevant information, facts as evident, and the clinical opinion of the practitioner at the time of the encounter. This report may have been done utilizing a voice recognition system. Attempts have been made to correct errors. However, there may be uncorrected grammatical, spelling, and recognition errors present. The file time of this note does not necessarily represent the time of service. Dictated By: Vito Felix MD 10/14/24 1242 Signed By: <Electronically signed by Vito Felix MD in OV> 10/14/24 1244 Critical Care Time Critical Care Time Critical Care Time: No Discharge Plan Discharge Clinical Impression: Right knee sprain Qualifiers: Encounter type: initial encounter Involved ligament of knee: unspecified ligament Qualified Code(s): S83.91XA - Sprain of unspecified site of right knee, initial encounter Patient Disposition: Home Condition: Stable Instructions: Knee Sprain (ED) Additional Instructions: Minimize activities that aggravate the condition, such as climbing stairs. Switching from high impact activities (like jogging or tennis) to lower impact activities (like swimming or cycling) will put less stress on your knee. Use the RICE method at home. May take ibuprofen and/or Tylenol if needed. If symptoms persist in 1 week after conservative treatment, follow-up with specialist. Patient Language: Lithuanian Prescriptions: No Action amitriptyline 50 mg tablet 50 mg PO HS aripiprazole [Abilify] 2 mg tablet 4 mg PO DAILY clonazepam 2 mg tablet 2 mg PO BID PRN (Reason: Anxiety) hydroxychloroquine 100 mg tablet 200 mg PO DAILY alendronate [Fosamax] 70 mg tablet 70 mg PO WEEKLY Qty: 12 2RF sertraline [Zoloft] 100 mg tablet 200 mg PO DAILY omeprazole 20 mg tablet,delayed release (DR/EC) 20 mg PO DAILY zolpidem [Ambien] 10 mg tablet 20 mg PO HS albuterol sulfate 90 mcg/actuation HFA aerosol inhaler 2 puff INHALATION Q4-6H PRN (Reason: shortness of breath or wheezing) Qty: 8.5 2RF Rx Instructions: inhale 2 puffs by mouth every 4-6 hours as needed. rosuvastatin 5 mg tablet 5 mg PO DAILY Qty: 90 2RF nitrofurantoin monohyd/m-cryst [Macrobid] 100 mg capsule 100 mg PO Q12H 7 Days Qty: 14 0RF Rx Instructions: must administer with a meal/food Follow-up/Referrals: Aubrey Grimm MD [Physician] - Time of Disposition: 12:49
[2024-10-14 12:17] VITALS: BP 144/88; PULSE 71; RESP 16; TEMP 36.5; O2SAT 98
== END 2024-10-14 13:11 | disposition home or self-care (01) ==
PROVIDERS: Emergency Provider Nurse Practitioner; PCP Internal Medicine
DX: S83.91XA Sprain of unspecified site of right knee, initial encounter (principal); X58.XXXA Exposure to other specified factors, initial encounter; J45.909 Unspecified asthma, uncomplicated; M32.9 Systemic lupus erythematosus, unspecified; Z98.84 Bariatric surgery status; D69.3 Immune thrombocytopenic purpura; F41.9 Anxiety disorder, unspecified
CPT/HCPCS: 73562; 99213; G0463; L1830

== ENCOUNTER 2024-10-23 13:28 | Outpatient (CLI) | payer BC, SELFPAY ==
--- NOTE | ~2024-10-23 | MR_ITS ---
MRI of the right knee Clinical history: Pain Technique: Coronal proton density and proton density-weighted images, sagittal proton-density and T2 fat-sat images, and axial proton-density fat-saturated images were acquired. Findings: Anterior and posterior cruciate ligaments are intact. Medial collateral ligament and the la teral collateral ligament complex are intact. Popliteus tendon is intact. Radial tear present at the posterior root of the medial meniscus. Probable superimposed oblique/horiz ontal tear of the posterior horn and body of medial meniscus. Lateral meniscus intact. There is grade IV chondromalacia the patellar apex with focal areas of subchondral reactive marrow ed rimma. There is patchy moderate chondral malacia the femoral trochlea. There is high-grade chondromalac ia along the central to inner aspect of the medial femoral condyle. There is probable very early deve loping subchondral sufficiency fracture at the medial tibial plateau with surrounding marrow edema. A rticular cartilage in the lateral compartment is relatively well-preserved. Extensor mechanism is intact. Moderate joint effusion present. Impression: Radial tear at the posterior the medial meniscus with suspected superimposed oblique/horizontal tear of the posterior horn and body. Probable early developing subchondral insufficiency fracture of the medial tibial plateau with surrou nding amorphous marrow edema. Degenerative changes, as detailed above, especially in the medial and patellofemoral compartments. Reviewed, dictated and finalized at location M. Impression: Radial tear at the posterior the medial meniscus with suspected superimposed ob lique/horizontal tear of the posterior horn and body. Probable early developing subchondral insufficiency fracture of the medial tibi al plateau with surrounding amorphous marrow edema. Degenerative changes, as detailed above, especially in the medial and patellofe moral compartments.
== END 2024-10-23 13:29 | disposition home or self-care (01) ==
PROVIDERS: PCP Orthopaedic Surgery; Visit Provider Internal Medicine
DX: M25.561 Pain in right knee (principal); S83.241A Other tear of medial meniscus, current injury, right knee, initial encounter
CPT/HCPCS: 73721

== ENCOUNTER 2024-11-27 11:55 | Emergency (ER) | payer BC, SELFPAY ==
--- NOTE | 2024-11-27 11:56 | ED_ITS ---
HPI - Nausea/Vomiting/Diarrhea General Chief complaint: Nausea/Vomiting/Diarrhea Stated complaint: NAUSEA Time Seen by Provider: 11/27/24 11:55 Source: patient Mode of arrival: ambulatory Limitations: no limitations History of Present Illness HPI Narrative: Patient is a 64-year-old female presents with nausea that is worsened this morning. Patient was prescribed [place] 11/17 with a 20 day supply(60 tabs) to take every 8 hours as needed. Patient states they were working as well and she started taking more. Patient ran out of pills yesterday. Patient has taken Zofran twice since 10:00 a.m.. Denies any abdominal pain but does report having hot and cold flashes. Related Data Home Medications ?Medication ?Instructions ?Recorded ?Confirmed ?Last Taken ?Type sertraline 100 mg tablet (Zoloft) 200 mg PO DAILY 07/16/19 11/27/24 04/15/21 History amitriptyline 50 mg tablet 50 mg PO HS 02/04/20 11/27/24 04/15/21 History aripiprazole 2 mg tablet (Abilify) 4 mg PO DAILY 09/21/20 11/27/24 04/15/21 History clonazepam 2 mg tablet 2 mg PO BID PRN Anxiety 01/13/21 11/27/24 04/15/21 History omeprazole 20 mg tablet,delayed 20 mg PO DAILY 01/09/22 11/27/24 Unknown History release zolpidem 10 mg tablet (Ambien) 20 mg PO HS Insomnia 01/09/22 11/27/24 Unknown History hydroxychloroquine 100 mg tablet 200 mg PO DAILY 05/15/24 11/27/24 Unknown History biotin 2,500 mcg capsule 2,500 mcg PO DAILY 10/28/24 11/27/24 Unknown History calcium 650 mg-vitamin D3 12.5 1 tablet PO DAILY 10/28/24 11/27/24 Unknown History mcg-vitamin K 40 mcg chewable tablet multivitamin (Daily Multi-Vitamin 1 tablet PO DAILY 10/28/24 11/27/24 Unknown History tablet) Allergies Allergy/AdvReac Type Severity Reaction Status Date / Time minocycline Allergy Mild Headache Verified 11/27/24 12:04 metoclopramide AdvReac Severe ANXIETY Verified 11/27/24 12:04 Review of Systems Review of Systems: All systems reviewed & are unremarkable except as noted in HPI and below Constitutional: Constitutional: Denies body ache(s), Denies chills, Denies fatigue, Denies fever(s), Denies headache(s), Denies malaise and Denies weakness Eyes: Eyes: Denies blurry vision, Denies irritation and Denies loss of vision ENT: Denies otalgia, Denies headache(s), Denies nasal discharge, Denies sinus pain and Denies sore throat Cardiovascular: Cardiovascular: Denies chest pain, Denies irregular heart rhythm and Denies dyspnea Respiratory: Respiratory: Denies dyspnea Gastrointestinal: Gastrointestinal: Denies abdominal pain, Denies melena, Denies hematochezia, Denies diarrhea, Reports nausea and Denies vomiting Musculoskeletal: Musculoskeletal: Denies back pain, Denies myalgias and Denies arthralgias Integumentary/Breasts: Skin/Breast: Denies pruritus and Denies rash Neurologic: Denies headache(s), Denies loss of vision and Denies weakness Psychiatric: Psychiatric: Reports no additional psychiatric complaints Endocrine: Endocrine: Denies fatigue PMFSH Past Medical History Medical History BMI 30.0-30.9,adult Lumbar radiculopathy Lumbar spondylosis Toe fracture, right Anxiety Hemolytic anemia Chronic ITP (idiopathic thrombocytopenia) Systemic lupus Discoid lupus Asthma Wears glasses Vision changes Weight gain Toe fracture, left Surgical History Surgical History History of surgery Suboccipital surgery for acoustic neuroma History of gastric bypass 2014 [place] [address] Logan Solorio History of removal of laparoscopic gastric banding device 2007, 2008 History of cervical discectomy with fusion, 2006 History of breast lift History of abdominoplasty 2000, 2007 Personal history of gastric banding 2002, 2007 History of incisional hernia repair x2 most recent [place] [address] Logan Solorio Hx of cholecystectomy Hx of splenectomy 1982 Family History Family History Father Family history of obesity Depression Heart disease Mother Family history of obesity Depression Patient's mother is in good health Family history of diabetes mellitus in first degree relative Family history of irritable bowel syndrome Hypertension Family history of elevated blood lipids Grandparent Family history of mental disorder Family history of alcoholism Family history of Alzheimer's disease Diabetes mellitus Family history of malignant neoplasm of stomach Family history of heart disease in male family member before age 55 Family history of cardiovascular disease Family history of hepatitis Sibling Patient's sister is in good health Patient's brother is in good health Family history of learning disability Social History Social History Smoking packs per day: 1 Smoking cigarettes per day: 20.0 Years smoked: 2 Smoking pack-years: 2.00 Smoking status: Never smoker Second hand tobacco smoke exposure: No Smoking end date: 04/30/84 Additional smoking assessment comments: SMOKED CIGARETTES IN COLLEGE FOR ABOUT IN YEAR Alcohol intake: former Drinks per week: 3 Alcohol use details: no longer drinks Substance use: never Substance use type: does not use Other substance usage details: VAPE PEN MARIJUANA Last use: 10/20/24 Current Housing: Decline to Answer Concerned About Future Housing: Decline to Answer Difficulty Paying Gas/Electric Bills: Decline to Answer Difficulty Paying for Meds: Decline to Answer Currently Unemployed: Decline to Answer Education: Decline to Answer Difficulty w/ Childcare or Family Care: Decline to Answer Living arrangements: with family 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 There is no relevant family history pertinent to the presenting complaint. Exam Const: General: cooperative, healthy appearing, comfortable, no acute distress and well nourished Nutritional Appearance: well nourished Orientation/consciousness: patient oriented x3 Limitations: no limitations HENMT: Head: normal to inspection, normocephalic and atraumatic Ears: hearing grossly normal bilaterally and external ears normal Face/Nose/Sinus: Normal external nose present, normal facial exam and face symmetric Face and sinus: normal facial exam and face symmetric Mouth: Yes lip normal Eyes: General: appearance normal, both eyes and all related structures Alignment and Position: alignment normal and position normal Periorbital: periorbital findings normal Eyelids: eyelids normal Pupils: Equal, round and reactive pupils present EOM: EOMs intact bilaterally Neck: Neck: normal visual inspection, full ROM and supple Chest: Chest palpation & inspection: normal inspection of the chest Resp: Effort & Inspection: normal respiratory effort and able to speak in complete sentences Auscultation: clear to auscultation bilaterally Cardio: Rate: regular rate Rhythm: regular rhythm Heart sounds: S1 normal heart sound present and S2 normal heart sound present GI: Inspection: normal to inspection Skin: General skin exam: normal color and no rashes or lesions noted Neuro: General: patient oriented x3 and moves all extremities Cranial nerves: Yes Equal, round and reactive pupils present Speech: normal speech Gait exam (Neuro): Normal gait present Extrem: General: normal to inspection, full ROM and no edema Psych: Appearance: grossly normal and well kempt Mental Status: mental status grossly normal Speech and movement: Normal speech and movement present Affect: normal affect Attitude: cooperative Thought process: Normal thought process present Course Course Emergency Course: Patient being transferred [facility] for further workup and evaluation. Patient is withdrawing from her pain medicine Portions of this record may have been created with voice recognition software Level of Care: Express Care Visit Vital Signs Vital signs: Vital Signs Temperature 36.4 C 11/27/24 12:04 Pulse Rate 95 11/27/24 12:04 Respiratory Rate 16 11/27/24 12:04 Blood Pressure 144/86 H 11/27/24 12:04 Pulse Oximetry 100 11/27/24 12:04 Temperature 36.4 C 11/27/24 12:04 Pulse Rate 95 11/27/24 12:04 Respiratory Rate 16 11/27/24 12:04 Blood Pressure 144/86 H 11/27/24 12:04 Pulse Oximetry 100 11/27/24 12:04 Reviewed Transfer Transfered to: [facility] Transportation: Other (Private auto) Transfer rationale: Patient being transferred [facility] for further workup and evaluation. Patient is withdrawing from her pain medicine Accepting physician: Oz Montano NP MDM - Nausea/Vomiting/Diarrhea MDM Narrative Medical decision making narrative: Patient being transferred [facility] for further workup and evaluation. Patient is withdrawing from her pain medicine Differential Diagnosis Differential diagnosis: Likely drug-induced nausea and vomiting, dehydration and other (Opiate withdrawal) Medical Records Attestation: I reviewed the patient's medical records. Discharge Plan Discharge Clinical Impression: Opiate withdrawal, Nausea Patient Disposition: Acute Care Hospital Condition: Stable Patient Language: Kiswahili Prescriptions: No Action amitriptyline 50 mg tablet 50 mg PO HS aripiprazole [Abilify] 2 mg tablet 4 mg PO DAILY clonazepam 2 mg tablet 2 mg PO BID PRN (Reason: Anxiety) Patient Comments: one tablet in the morning and half tablet in the evening hydroxychloroquine 100 mg tablet 200 mg PO DAILY alendronate [Fosamax] 70 mg tablet 70 mg PO WEEKLY Qty: 12 2RF sertraline [Zoloft] 100 mg tablet 200 mg PO DAILY omeprazole 20 mg tablet,delayed release (DR/EC) 20 mg PO DAILY biotin 2,500 mcg capsule 2,500 mcg PO DAILY calcium-vitamin D3-vitamin K 650 mg-12.5 mcg-40 mcg tablet,chewable 1 tablet PO DAILY multivitamin [Daily Multi-Vitamin] Tablet 1 tablet PO DAILY zolpidem [Ambien] 10 mg tablet 20 mg PO HS albuterol sulfate 90 mcg/actuation HFA aerosol inhaler 2 puff INHALATION Q4-6H PRN (Reason: shortness of breath or wheezing) Qty: 8.5 2RF Rx Instructions: inhale 2 puffs by mouth every 4-6 hours as needed. rosuvastatin 5 mg tablet 5 mg PO DAILY Qty: 90 2RF hydrocodone-acetaminophen 10-325 mg tablet 1 tablet PO Q8H PRN (Reason: pain) Qty: 60 0RF ondansetron HCl 4 mg tablet 4 mg PO Q8H PRN (Reason: nausea and vomiting) Qty: 20 0RF Follow-up/Referrals: Austin Joseph DO [Primary Care Provider] - Time of Disposition: 12:25
[2024-11-27 12:04] VITALS: BP 144/86; PULSE 95; RESP 16; TEMP 36.4; O2SAT 100
== END 2024-11-27 12:19 | disposition short-term general hospital (02) ==
PROVIDERS: Emergency Provider Nurse Practitioner Family; PCP Internal Medicine
DX: F11.23 Opioid dependence with withdrawal (principal); R11.2 Nausea with vomiting, unspecified; T40.2X5A Adverse effect of other opioids, initial encounter; Z79.899 Other long term (current) drug therapy; F17.210 Nicotine dependence, cigarettes, uncomplicated
CPT/HCPCS: 99212; G0463

== ENCOUNTER 2024-11-27 12:33 | Emergency (ER) | payer BC, SELFPAY ==
--- OUTSIDE RECORDS SUMMARY | 2024-11-27 12:35 | XMS_ITS | Clinical Summary ---
Author Organization [facility] Address [address] [place] [address] Care Team Providers Care [employer] Name Role Phone Austin Joseph DO Primary Care Provider [phone] [facility],non-owned Affiliates and Associated Physician Practices is amultiple site organization consisting of ambulatory clinics and hospital sitesin [place], [place], [place] and [place]. This disclosure is being madepursuant to the Care Everywhere program and may not contain all information available regarding this patient. Last updated 18.[facility] Allergies Active Allergy Reactions Criticality Noted Date Comments Metoclopramide Other 03/29/2021 Severe anxiety Minocycline 01/26/2009 headaches Medications * Be aware that medications may not be up to date on this document. Alwaysverify current medications with the patient. amitriptyline (ELAVIL) 50 MG tablet Take 1 (one) tablet by mouth at bedtime Active ARIPiprazole (ABILIFY) 2 MG tablet Take 2 (two) tablets by mouth once daily 1 Active sertraline (ZOLOFT) 100 MG tablet Take 2 (two) tablets by mouth once daily 1 Active albuterol HFA (PROVENTIL; VENTOLIN; PROAIR) 108 (90 Base) MCG/ACT inhaler 1 Active fluticasone-sa lmeterol hfa (ADVAIR HFA) 115-21 MCG/ACT Inhale 2 puffs by mouth 2 times daily Active rosuvastatin (CRESTOR) 5 MG tablet Take 1 (one) tablet by mouth once daily 1 Active omeprazole (PRILOSEC) 20 MG capsule Take 1 (one) capsule by mouth daily before breakfast 30 capsule 1 Active zolpidem (Ambien) 10 MG tablet TAKE 1 TO 2 TABLETS BY MOUTH AT BEDTIME NEEDED FOR INSOMNIA 2 Active clonazePAM (KlonoPIN) 0.5 MG tablet clonazepam 0.5 mg tablet take 1 tablet by oral route 3 times every day Active therapeutic multivitamin-m inerals (Theragran-M) tablet Take 1 (one) tablet by mouth daily with food Active acetaminophen (Tylenol) 325 MG tablet Take 2 (two) tablets by mouth every 6 hours as needed for Fever or Pain Maximum allowable Acetaminophen amount = 4 Grams (4000 mg) / 24 hours. 2 Active biotin 2.5 MG tablets Take 1 (one) tablet by mouth once daily Active vitamin D3 (Cholecalcifer ol) 25 MCG (1000 UNITS) tablet Take 1 (one) tablet by mouth once daily Active Misc Natural Products (BEET ROOT PO) Active calcium carbonate (Tums) 500 MG chew tablet Take 1 (one) tablet by mouth daily with food Active semaglutide (Wegovy) 0.25 MG/0.5ML pen Inject 0.25 (one-quarter) mg subcutaneously every 7 days 2 mL 4 Active phentermine (Ionamine) 15 MG capsule Take 1 (one) capsule by mouth daily before breakfast 30 capsule 4 Active Active Problems Problem Noted Date Diagnosed Date Incarcerated incisional hernia 12/07/2021 S/P gastric bypass 04/13/2021 Status post gastric banding 01/26/2009 Social History Tobacco Use Types Packs/Day Years Used Date Smoking Tobacco: Former Cigarettes 0.5 3 Smokeless Tobacco: Never Tobacco Cessation:Counseling Given: Yes Comments:quit in 1983 Alcohol Use Standard Drinks/Week Comments Yes 1 (1 standard drink = 0.6 oz pur e alcohol) 1 glass /wk AUDIT-C Answer Date Recorded Q1: How often do you have a drink containing alcohol? 4 or more times a week 04/13/2021 Q2: How many drinks containi ng alcohol do you have on a typical day when you are drinking? 7 to 9 1 Q3: How often do you have si x or more drinks on one occasion? Daily or almost daily 04/13/2021 Hunger Vital Sign Answer Date Recorded Within the past 12 months, y ou worried that your food would run out before you got the money to buy more. Never true 12/09/19 22 Within the past 12 months, t he food you bought just didn't last and you didn't have money to get more. 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 Gender Identity Not on file Sexual Orientation Not on file Last Filed Vital Signs Vital Sign Reading Time Taken Comments Blood Pressure 140/80 11/14/2023 12:51 PM CDT Pulse 89 11/14/2023 12:51 PM CDT Temperature 36.2 C (97.1 F) 11/14/2023 12:51 PM CDT Respiratory Rate 18 12/08/2021 8:33 AM CDT Oxygen Saturation 97% 11/14/2023 12:51 PM CDT Inhaled Oxygen Concentration - - Weight 89.2 kg (196 lb 9.6 oz) 11/14/2023 12:51 PM CDT Height 167.6 cm (5' 6) 11/14/2023 12:51 PM CDT Body Mass Index 31.73 11/14/2023 12:51 PM CDT Plan of Treatment Health Maintenance Due Date Last Done Comments COLOGUARD (AGES 45-75) - COLON CA SCREENING 1961 COLON MONITORING 1961 COLONOSCOPY - COLON CA SCREENING 1961 CT COLONOGRAPHY - COLON CA SCREENING 1961 Colorectal Cancer Screening 1961 FIT - COLON CA SCREENING 1961 FLEX SIG - COLON CA SCREENING 1961 MAMMOGRAM 1961 HIB VACCINE (1 of 1 - Risk 1-dose series) 02/10/1963 MENINGOCOCCAL GROUPS A/C/Y/W VACCINE (1 - Risk 2-dose series) 11/11/1963 MENINGOCOCCAL (Group B) VACCINE SHARED DECISION-MAKING (1 of 4 - Increased Risk) 11/11/1971 HIV SCREENING 1976 HEPATITIS C SCREENING 11/06/1979 DTAP/TDAP/TD VACCINES (1 - Tdap) 1980 PNEUMOCOCCAL VACCINE 50+ (1 of 2 - PCV) 1980 ZOSTER VACCINE (1 of 2) 11/11/2011 Respiratory Syncytial Virus (RSV) Vaccine Pt: or over 60 yrs (1 - Risk 60-74 years 1-dose series) 2021 COVID-19 VACCINE (4 - season) 2023 12/16/2020, 07/22/2020, 07/01/2020 DEPRESSION SCREENING 04/30/2024 PAP SMEAR 11/24/2024 11/24/2021, 11/24/2021 INFLUENZA VACCINE (#1) 2024 1, 02/13/2020, 01/28/2018, Additional history exists SCREENING FOR DIABETES 11/28/2026 4, 11/29/2023, 07/20/2022, Additional history exists HEPATITIS B VACCINE Aged Out No longe r eligible based on patient's age to complete this topic HPV VACCINE Aged Out No longer eligi ble based on patient's age to complete this topic Medical Devices Implanted Type Area Ground Support Equipment Fitter Device Identifier Shelf Expiration Date Model / Serial / Lot Mesh Srg Ventralight St Sepra Echo 4.5in Implanted:Qty: 1 on 12/07/2021 by Logan Solorio MD at [facility] Abdomen [employer] 06/27/2023 [id number] / / [id number] Procedures Procedure Name Priority Date/Time Associated Diagnosis Comments HEMOGLOBIN A1C Routine 11/29/2023 8:53 AM CDT Bariatric surgery status Vitamin deficiency, unspecified Vitamin D deficiency, unspecified Vitamin B deficiency Mineral deficiency Intestinal malabsorption, unspecified type Class 1 obesity with body mass index (BMI) of 31.0 to 31.9 in adult, unspecified obesity type, unspecified whether serious comorbidity present from Last 3 Months or Most Recently Relevant to Health Maintenance Results * (ABNORMAL) HEMOGLOBIN A1C (HgbA1C) (11/29/2023 8:53 AM CDT) Hemoglobin A1c 5.8(H) 4.8 - 5.6 % [facility] ACCOUNT BILL Comment: . Prediabetes: 5.7 - 6.4 Diabetes: >6.4 Glycemic control for adults with diabetes: <7.0 Blood BLOOD SPECIMEN / Unknown 11/29/2023 8:53 AM CDT 11/29/2023 Narrative Resulting Agency Comment Lab Testing performed at: [facility] [address] [phone] Tessalbert Guzmán Brad RAMP FLIGHT ATTENDANT-ACTIVITIES DIRECTOR SCOUTING LAB - CHEMISTRY O RDERABLES Final Result [facility] ACCOUNT BILL [address] [place] [id number] from Last 3 Months or Most Recently Relevant to Health Maintenance Insurance ANTHEM ANTHEM Advance Directives * Full Code (Latest Code Status on File) Date Activated Date Inactivated Comments 12/07/2021 5:38 PM 12/08/2021 1:04 PM * Full Code Date Activated Date Inactivated Comments 04/13/2021 10:58 AM 04/14/2021 7:49 PM * Full Code Date Activated Date Inactivated Comments 07/12/2009 5:21 PM 07/14/2009 11:05 PM Care Teams [employer] Relationship Specialty Start Date End Date Austin Joseph DO [address] [place] [phone] PCP - General Internal Medicine 12/07/21
[2024-11-27 12:52] VITALS: BP 134/90; PULSE 90; RESP 16; TEMP 36.4; O2SAT 100
--- OUTSIDE RECORDS SUMMARY | 2024-11-27 14:28 | XMS_ITS | Clinical Summary ---
Author Organization [facility] Address [address] [place] [address] Care Team Providers Care Non Destructive Testing Supervisor Name Role Phone Austin Joseph DO Primary Care Provider [phone] Source Comments [facility],non-owned Affiliates and Associated Physician Practices is amultiple site organization consisting of ambulatory clinics and hospital sitesin [place], [place], [place] and [place]. This disclosure is being madepursuant to the Care Everywhere program and may not contain all information available regarding this patient. Last updated 18.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 Gender Identity Not on file Sexual Orientation [...] this topic Medical Devices Implanted Type Area Field Operator Device Identifier Shelf Expiration Date Model / Serial / Lot Mesh Srg Ventralight St Sepra Echo 4.5in Implanted:Qty: 1 on 12/07/2021 by Logan Solorio MD at [facility] Abdomen [employer] 06/27/2023 [id number] / / [id number] Procedures Procedure Name Priority Date/Time Associated Diagnosis [...] Agency Comment Lab Testing performed at: [facility] [address] [id number] Tessalbert Guzmán Brad CAR REFINISHER-METAL BOX MAKER LAB - CHEMISTRY O RDERABLES Final Result [facility] ACCOUNT BILL [address] [place] [address] from Last 3 Months or Most Recently [...] 5:21 PM 07/14/2009 11:05 PM Care Teams Non Destructive Testing Supervisor Relationship Specialty Start Date End Date Austin Joseph DO [address] [place] [phone] PCP - General Internal Medicine 12/07/21
[2024-11-27] MEDS: LORazepam INJ (*CRX) 2 MG/ML VIAL 0.5 MG IV PUSH (15:04)
[2024-11-27] MEDS: PROMETHAZINE HCL 25 MG/ML AMPUL 12.5 MG IV PUSH (15:07)
[2024-11-27 15:17] LABS: Hematocrit 40.3 % (37.0-47.0); Hemoglobin 13.4 g/dL (12.0-15.0); Immature Granulocyte Percent A 0.3 % (0-0.5); Lymphocytes Absolute Auto 0.71 K/mm3 (0.9-3.2); Mean Corpuscular HGB Conc 33.3 g/dl (32-36); Mean Corpuscular Hemoglobin 31.7 pg (26-34); Mean Corpuscular Volume 95.3 fl (80-100); Nucleated Red Blood Cells Absolute Auto 0.000 K/mm3 (0.0-0.012); Nucleated Red Blood Cells Perc 0.0 % (0.0-0.2); Platelet Count Result 254 k/mm3 (150-375); Red Blood Count 4.23 M/mm3 (4.2-5.4); White Blood Count 5.8 K/mm3 (4.5-10.0)
[2024-11-27 15:33] LABS: Alanine Aminotransferase 22 U/L (6-35); Albumin Level 4.2 g/dL (3.5-5.1); Alkaline Phosphatase 83 U/L (38-126); Anion Gap 13 mmol/L (4-12); Aspartate Amino Transferase 28 U/L (14-36); Bilirubin,Total 0.5 mg/dL (0.2-1.3); Blood Urea Nitrogen 5 mg/dL (7-17); Calcium 9.1 mg/dL (8.4-10.2); Carbon Dioxide 20 mmol/L (22-30); Chloride 105 mmol/L (98-107); Estimated CRCL calculation 85 ml/min; Estimated Glomerular Filt Rate > 60; Glucose 144 mg/dL (65-110); Lipase 29 U/L (23-300); Potassium 3.5 mmol/L (3.4-5.0); Sodium 138 mmol/L (137-145); Total Protein 7.6 g/dL (6.3-8.2)
[2024-11-27 16:00] VITALS: BP 143/84; PULSE 90; RESP 15; O2SAT 100
[2024-11-27 16:50] VITALS: BP 143/80; PULSE 85; RESP 14; O2SAT 100
[2024-11-27] MEDS: ONDANSETRON INJ 4 MG/2 ML VIAL IV PUSH (16:56)
[2024-11-27] MEDS: PROCHLORPERAZINE EDISYLATE 10 MG/2 ML VIAL IV PUSH (17:52)
--- NOTE | 2024-11-27 18:04 | ED.GENADULT ---
HPI - General Adult General Chief complaint: Nausea/Vomiting/Diarrhea Stated complaint: N/V SINCE THIS AM Time Seen by Provider: 11/27/24 14:04 History of Present Illness HPI narrative: Patient is a 64-year-old female who presents ER with nausea and vomiting. She is concerned she is going through opiate withdrawal. She has had a knee injury that she has been trying to get surgery on. She is scheduled for surgery next week. She has been taking 10 mg hydrocodones for her discomfort. She is supposed to take it 3 times a day but she has been taking it up to 6 times a day due to her pain. She ran out yesterday after taking 2 pills. Since then she has been having nausea with dry heaves. No diarrhea. No shakiness or confusion. Related Data Home Medications ?Medication ?Instructions ?Recorded ?Confirmed ?Last Taken ?Type sertraline 100 mg tablet (Zoloft) 200 mg PO DAILY 07/16/19 11/27/24 04/15/21 History amitriptyline 50 mg tablet 50 mg PO HS 02/04/20 11/27/24 04/15/21 History aripiprazole 2 mg tablet (Abilify) 4 mg PO DAILY 09/21/20 11/27/24 04/15/21 History clonazepam 2 mg tablet 2 mg PO BID PRN Anxiety 01/13/21 11/27/24 04/15/21 History omeprazole 20 mg tablet,delayed 20 mg PO DAILY 01/09/22 11/27/24 Unknown History release zolpidem 10 mg tablet (Ambien) 20 mg PO HS Insomnia 01/09/22 11/27/24 Unknown History hydroxychloroquine 100 mg tablet 200 mg PO DAILY 05/15/24 11/27/24 Unknown History biotin 2,500 mcg capsule 2,500 mcg PO DAILY 10/28/24 11/27/24 Unknown History calcium 650 mg-vitamin D3 12.5 1 tablet PO DAILY 10/28/24 11/27/24 Unknown History mcg-vitamin K 40 mcg chewable tablet multivitamin (Daily Multi-Vitamin 1 tablet PO DAILY 10/28/24 11/27/24 Unknown History tablet) Allergies Allergy/AdvReac Type Severity Reaction Status Date / Time minocycline Allergy Mild Headache Verified 11/27/24 12:54 metoclopramide AdvReac Severe ANXIETY Verified 11/27/24 12:54 [facility] Past Medical History Medical History BMI 30.0-30.9,adult Lumbar radiculopathy Lumbar spondylosis Toe fracture, right Anxiety Hemolytic anemia Chronic ITP (idiopathic thrombocytopenia) Systemic lupus Discoid lupus Asthma Wears glasses Vision changes Weight gain Toe fracture, left Surgical History Surgical History History of surgery Suboccipital surgery for acoustic neuroma History of gastric bypass 2014 [place] [address] Logan Solorio History of removal of laparoscopic gastric banding device 2007, 2008 History of cervical discectomy with fusion, 2006 History of breast lift History of abdominoplasty 2000, 2006 Personal history of gastric banding 2002, 2007 History of incisional hernia repair x2 most recent [place] [address] Logan Solorio Hx of cholecystectomy Hx of splenectomy 1982 Family History Family History Father Family history of obesity Depression Heart disease Mother Family history of obesity Depression Patient's mother is in good health Family history of diabetes mellitus in first degree relative Family history of irritable bowel syndrome Hypertension Family history of elevated blood lipids Grandparent Family history of mental disorder Family history of alcoholism Family history of Alzheimer's disease Diabetes mellitus Family history of malignant neoplasm of stomach Family history of heart disease in male family member before age 55 Family history of cardiovascular disease Family history of hepatitis Sibling Patient's sister is in good health Patient's brother is in good health Family history of learning disability Social History Social History Smoking packs per day: 1 Smoking cigarettes per day: 20.0 Years smoked: 2 Smoking pack-years: 2.00 Smoking status: Never smoker Second hand tobacco smoke exposure: No Smoking end date: 04/30/84 Additional smoking assessment comments: SMOKED CIGARETTES IN COLLEGE FOR ABOUT IN YEAR Alcohol intake: former Drinks per week: 3 Alcohol use details: no longer drinks Substance use: never Substance use type: does not use Other substance usage details: VAPE PEN MARIJUANA Last use: 10/20/24 Current Housing: Decline to Answer Concerned About Future Housing: Decline to Answer Difficulty Paying Gas/Electric Bills: Decline to Answer Difficulty Paying for Meds: Decline to Answer Currently Unemployed: Decline to Answer Education: Decline to Answer Difficulty w/ Childcare or Family Care: Decline to Answer Living arrangements: with family 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 HEAD: Normocephalic, atraumatic. EYES: PERRL and EOMI. ENT: Mucous membranes moist. CHEST: Clear to auscultation. No respiratory distress. HEART: Regular rate and rhythm. Normal peripheral pulses. ABDOMEN: Soft, nontender, nondistended. EXTREMITIES: Normal range of motion. No edema. SKIN: Warm, dry, no rash. NEURO: Alert and oriented x3. PSYCH: Normal mood and affect. Course Course Emergency Course: Very mild withdrawal symptoms due to nausea or which is poorly controlled but not actively vomiting. Patient given Zofran/Phenergan/Compazine. The Compazine helped the most. Discharge home with antiemetics. Vital Signs Vital signs: Vital Signs Temperature 97.6 F 11/27/24 12:52 Pulse Rate 90 11/27/24 12:52 Respiratory Rate 16 11/27/24 12:52 Blood Pressure 134/90 11/27/24 12:52 Pulse Oximetry 100 11/27/24 12:52 Temperature 97.6 F 11/27/24 12:52 Pulse Rate 85 11/27/24 16:50 Respiratory Rate 14 11/27/24 16:50 Blood Pressure 143/80 H 11/27/24 16:50 Pulse Oximetry 100 11/27/24 16:50 Medical Decision Making MDM Narrative Medical decision making narrative: COWS Score for Opiate Withdrawal from [employer] on 11/27/2024 All calculations should be rechecked by clinician prior to use RESULT SUMMARY: 4 points No active withdrawal INPUTS: Resting Pulse Rate (BPM) ?> 1 = 81-100 Sweating ?> 0 = No report of chills or flushing Restlessness observation during assessment ?> 0 = Able to sit still Pupil size ?> 0 = Pupils pinned or normal size for room light Bone or joint aches ?> 0 = Not present Runny nose or tearing ?> 0 = Not present GI Upset ?> 2 = Nausea or loose stool Tremor observation of outstretched hands ?> 0 = No tremor Yawning observation during assessment ?> 0 = No yawning Anxiety or irritability ?> 1 = Patient reports increasing irritability or anxiousness Gooseflesh skin ?> 0 = Skin is smooth Vital Signs Vital Signs: Vital Signs Temperature 97.6 F 11/27/24 12:52 Pulse Rate 90 11/27/24 12:52 Respiratory Rate 16 11/27/24 12:52 Blood Pressure 134/90 11/27/24 12:52 Pulse Oximetry 100 11/27/24 12:52 Temperature 97.6 F 11/27/24 12:52 Pulse Rate 85 11/27/24 16:50 Respiratory Rate 14 11/27/24 16:50 Blood Pressure 143/80 H 11/27/24 16:50 Pulse Oximetry 100 11/27/24 16:50 Lab Data 11/27/24 14:58 11/27/24 14:57 Labs: Lab Results 11/27/24 11/27/24 Range/Units 14:57 14:58 WBC 5.8 (4.5-10.0) K/mm3 RBC 4.23 (4.2-5.4) M/mm3 Hgb 13.4 (12.0-15.0) g/dL Hct 40.3 (37.0-47.0) % MCV 95.3 (80-100) fl MCH 31.7 (26-34) pg MCHC 33.3 (32-36) g/dl RDW 12.7 (11.5-14.5) % Plt Count 254 (150-375) k/mm3 MPV 9.8 (7.4-10.4) fl Immature Gran % (Auto) 0.3 (0-0.5) % Neut % (Auto) 82.5 H (45.5-73.1) % Lymph % (Auto) 12.3 L (18.3-44.2) % [place] % (Auto) 4.2 (2.6-8.5) % Eos % (Auto) 0.0 (0-4.4) % Baso % (Auto) 0.7 (0.2-1.2) % Lymph # (Auto) 0.71 L (0.9-3.2) K/mm3 [place] # (Auto) 0.2 (0.1-0.6) K/mm3 Eos # (Auto) 0.0 (0-0.3) K/mm3 Baso # (Auto) 0.0 (0.0-0.1) K/mm3 Abs Immat Gran (auto) 0.02 (0.00-0.031) K/mm3 Absolute Neuts (auto) 4.8 (1.3-6.7) K/mm3 Absolute Nucleated RBC 0.000 (0.0-0.012) K/mm3 Nucleated RBC % 0.0 (0.0-0.2) % Sodium 138 (137-145) mmol/L Potassium 3.5 (3.4-5.0) mmol/L Chloride 105 (98-107) mmol/L Carbon Dioxide 20 L (22-30) mmol/L Anion Gap 13 H (4-12) mmol/L BUN 5 L (7-17) mg/dL Creatinine 0.53 L (0.7-1.0) mg/dL Estim Creat Clear Calc 85 ml/min Estimated GFR > 60 (59 - ) Glucose 144 H (65-110) mg/dL Calcium 9.1 (8.4-10.2) mg/dL Total Bilirubin 0.5 (0.2-1.3) mg/dL AST 28 (14-36) U/L ALT 22 (6-35) U/L Alkaline Phosphatase 83 (38-126) U/L Total Protein 7.6 (6.3-8.2) g/dL Albumin 4.2 (3.5-5.1) g/dL Lipase 29 (23-300) U/L Discharge Plan Discharge Clinical Impression: Opiate withdrawal, Nausea Patient Disposition: Home Condition: Stable Instructions: Narcotic Withdrawal (ED) Additional Instructions: Return to the emergency department if you develop severe abdominal pain, severe nausea and vomiting to the point where you are unable to keep down fluids, if you develop chest pain or difficulty breathing, blood in your stool, dizziness or fainting, or if you develop any other new or concerning symptoms as these could be signs of more serious medical illness. Try to stay well hydrated. Patient Language: Armenian Prescriptions: New prochlorperazine maleate [Compazine] 10 mg tablet 10 mg PO Q8H PRN (Reason: nausea and vomiting) Qty: 14 0RF No Action amitriptyline 50 mg tablet 50 mg PO HS aripiprazole [Abilify] 2 mg tablet 4 mg PO DAILY clonazepam 2 mg tablet 2 mg PO BID PRN (Reason: Anxiety) Patient Comments: one tablet in the morning and half tablet in the evening hydroxychloroquine 100 mg tablet 200 mg PO DAILY alendronate [Fosamax] 70 mg tablet 70 mg PO WEEKLY Qty: 12 2RF sertraline [Zoloft] 100 mg tablet 200 mg PO DAILY omeprazole 20 mg tablet,delayed release (DR/EC) 20 mg PO DAILY biotin 2,500 mcg capsule 2,500 mcg PO DAILY calcium-vitamin D3-vitamin K 650 mg-12.5 mcg-40 mcg tablet,chewable 1 tablet PO DAILY multivitamin [Daily Multi-Vitamin] Tablet 1 tablet PO DAILY zolpidem [Ambien] 10 mg tablet 20 mg PO HS albuterol sulfate 90 mcg/actuation HFA aerosol inhaler 2 puff INHALATION Q4-6H PRN (Reason: shortness of breath or wheezing) Qty: 8.5 2RF Rx Instructions: inhale 2 puffs by mouth every 4-6 hours as needed. rosuvastatin 5 mg tablet 5 mg PO DAILY Qty: 90 2RF hydrocodone-acetaminophen 10-325 mg tablet 1 tablet PO Q8H PRN (Reason: pain) Qty: 60 0RF ondansetron HCl 4 mg tablet 4 mg PO Q8H PRN (Reason: nausea and vomiting) Qty: 20 0RF Follow-up/Referrals: Austin Joseph DO [Primary Care Provider] - 1 Week
== END 2024-11-27 18:36 | disposition home or self-care (01) ==
PROVIDERS: Emergency Provider Emergency Medicine; PCP Internal Medicine
DX: F11.23 Opioid dependence with withdrawal (principal); J45.909 Unspecified asthma, uncomplicated; M32.9 Systemic lupus erythematosus, unspecified; D69.3 Immune thrombocytopenic purpura; F41.9 Anxiety disorder, unspecified; Z98.84 Bariatric surgery status; Z98.1 Arthrodesis status; Z87.891 Personal history of nicotine dependence; Z90.49 Acquired absence of other specified parts of digestive tract; Z90.81 Acquired absence of spleen
CPT/HCPCS: 36415; 80053; 83690; 85025; 96374; 96375; 99284; J0780; J2060; J2405; J2550

== ENCOUNTER 2024-11-28 13:24 | Outpatient (CLI) | payer BC, SELFPAY ==
--- OUTSIDE RECORDS SUMMARY | 2024-11-28 13:29 | XMS_ITS | Clinical Summary ---
Author Organization [facility] Address [address] [place] [address] Care Team Providers Care Cotton Expert Name Role Phone Austin Joseph DO Primary Care Provider [phone] Source Comments [facility],non-owned Affiliates and Associated Physician Practices is amultiple site organization consisting of ambulatory clinics and hospital sitesin [place], [place], [place] and [place]. This disclosure is being madepursuant to the Care Everywhere program and may not contain all information available regarding this patient. 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 Gender Identity Not on file Sexual Orientation [...] this topic Medical Devices Implanted Type Area Coil Binder Device Identifier Shelf Expiration Date Model / Serial / Lot Mesh Srg Ventralight St Sepra Echo 4.5in Implanted:Qty: 1 on 12/07/2021 by Logan Solorio MD at [facility] Abdomen [employer] 06/27/2023 [id number] / / [id number] Procedures Procedure Name Priority Date/Time Associated Diagnosis [...] Agency Comment Lab Testing performed at: [facility] [address] [facility] [address] [facility] [id number] Tessalbert Guzmán Brad BOILERS INSPECTOR-DIRECT CUSTOMER SERVICE REPRESENTATIVE LAB - CHEMISTRY O RDERABLES Final Result [facility] ACCOUNT BILL [address] [place] [address] from Last 3 Months or Most Recently [...] 5:21 PM 07/14/2009 11:05 PM Care Teams Cotton Expert Relationship Specialty Start Date End Date Austin Joseph DO [address] [place] [id number] PCP - General Internal Medicine 12/07/21
--- NOTE | 2024-11-28 13:33 | ECG_ITS ---
Test Date: 2024-11-28 13:41:21 Measurements Intervals Danielson Rate: 79 P: 56 NC: 141 QRS: 25 QRSD: 92 T: 53 QT: 452 QTc: 521 Interpretive Statements SINUS RHYTHM POSSIBLE LEFT ATRIAL ENLARGEMENT BORDERLINE ST ABNORMALITY- ANTEROLAT/INF LEADS PROLONGED QT INTERVAL BASELINE ARTIFACT- I, II, III, AVR, AVL, V3-V6 ABNORMAL ECG No previous ECG available for comparison Electronically Signed On 11-28-2024 13:44:57 CDT by Sergei Haines D.O.
== END 2024-11-28 13:25 | disposition home or self-care (01) ==
LOC: ANHCARD 13:26
PROVIDERS: PCP Internal Medicine; Visit Provider Anesthesiology
DX: R94.31 Abnormal electrocardiogram [ECG] [EKG] (principal); M16.12 Unilateral primary osteoarthritis, left hip; E78.5 Hyperlipidemia, unspecified
CPT/HCPCS: 93005

== ENCOUNTER 2024-12-03 03:54 | Day surgery (SDC) | payer BC, SELFPAY ==
[2024-11-25 18:22] VITALS: BMI 28.4
--- NOTE | 2024-11-25 18:43 | PC.NURSE ---
Report to the Outpatient Waiting Room, entrance under the green pavilion located off [facility], at time __0830__ on date __12/03/24_. Planned Procedure Time: __1030__.? Time changes happen often and if your time is changed the preop area will call you the afternoon before. - You and your visitor will be asked to self-screen and do not enter if you have any COVID symptoms. Please call surgeon if you need to reschedule. - A mask is optional within the hospital at this time. Patients may have clear liquids (water, carbonated beverages, clear teas, apple juice) until 3 hours prior to surgery with a maximum of 20 ounces. - No food from midnight until time of surgery and no smoking, or chewing tobacco (or any form of nicotine). No chewing gum, candy or mints. Take only the following medications with a SIP of water on the morning of surgery: ___albuterol, amitriptyline, aripiprazole, clonazepam, hydrocodone-acetaminophen, sertraline __ DO NOT STOP ANY OF YOUR OTHER PRESCRIPTION MEDICATIONS PRIOR TO SURGERY EXCEPT THE FOLLOWING Hold all vitamins and supplements for 3 days per anesthesiologist. Please no make-up, nail portuguese, hairspray, perfume, deodorant, or body powder the day of surgery.? No jewelry (including any body piercings) or valuables the day of surgery, leave them at home.? Please take a shower or bath the night before, or the morning of, surgery with an antibacterial soap.? Wear comfortable, loose fitting clothing.? - Jewelry must be removed prior to entering the operating room.? Rings and piercings that are not removed may be cut off. - The hospital will not accept responsibility for valuables.? - Please leave all valuables, including medications, at home the day of surgery. If you are going home after surgery, a licensed xm1 tank driver must drive you home.? - NO public transportation without another adult if you receive anesthesia. - We recommend that an adult stay with you for 24 hours following discharge. - We also recommend that you do not drive, make important decision, drink alcoholic beverages, or take any drugs that were not prescribed by your health care provider for at least 24 hours after your discharge time. Follow any additional instructions given to you from your surgeon. Telephone instructions given to __Debbie__and asked if any additional questions and then verbalized understanding. Patient advised to call surgeon office or pre surgery nurse liaison [phone] if any additional questions.
--- NOTE | 2024-12-02 07:19 | PM.IMHP ---
H&P: HPI History of Present Illness Date/Time: 12/02/24 07:19 Chief Complaint: Patient is knee pain right. She mechanical catching and locking with the activity. She is tender medially has a positive Jeff's. Her MRI shows meniscal tear she would like to consider arthroscopic intervention. Review of Systems Musculoskeletal: Musculoskeletal: Reports arthralgias, Reports joint swelling and Reports stiffness Neurologic: Reports abnormal gait [facility] Past Medical History Medical History (Updated 12/02/24 @ 07:21 by Seun Zhou MD) Acute medial meniscus tear of right knee BMI 28.0-28.9,adult BMI 30.0-30.9,adult Lumbar radiculopathy Lumbar spondylosis Toe fracture, right Anxiety Hemolytic anemia Chronic ITP (idiopathic thrombocytopenia) Systemic lupus Discoid lupus Asthma Wears glasses Vision changes Weight gain Toe fracture, left Surgical History Surgical History History of surgery Suboccipital surgery for acoustic neuroma History of gastric bypass 2014 [place] [address] Logan Solorio History of removal of laparoscopic gastric banding device 2007, 2008 History of cervical discectomy with fusion, 2007 History of breast lift History of abdominoplasty 2000, 2007 Personal history of gastric banding 2002, 2007 History of incisional hernia repair x2 most recent [place] [address] Logan Solorio Hx of cholecystectomy Hx of splenectomy 1982 Family History Family History Father Family history of obesity Depression Heart disease Mother Family history of obesity Depression Patient's mother is in good health Family history of diabetes mellitus in first degree relative Family history of irritable bowel syndrome Hypertension Family history of elevated blood lipids Grandparent Family history of mental disorder Family history of alcoholism Family history of Alzheimer's disease Diabetes mellitus Family history of malignant neoplasm of stomach Family history of heart disease in male family member before age 55 Family history of cardiovascular disease Family history of hepatitis Sibling Patient's sister is in good health Patient's brother is in good health Family history of learning disability Social History Social History (Updated 11/28/24 @ 12:53 by SIOBHAN Antunez) Smoking packs per day: 1 Smoking cigarettes per day: 20.0 Years smoked: 2 Smoking pack-years: 2.00 Smoking status: Former smoker Second hand tobacco smoke exposure: No Smoking end date: 04/30/84 Additional smoking assessment comments: SMOKED CIGARETTES IN COLLEGE FOR ABOUT IN YEAR Alcohol intake: former Drinks per week: 3 Alcohol use details: no longer drinks Substance use: former Substance use type: marijuana Other substance usage details: VAPE PEN MARIJUANA Last use: 10/20/24 Do You Feel Safe in your Home?: Yes Lack of Transportation: No Lack of Food: Never True Current Housing: I Have Housing Concerned About Future Housing: No Difficulty Paying Gas/Electric Bills: No Difficulty Paying for Meds: No Currently Unemployed: No Education: Bachelor's Degree Difficulty w/ Childcare or Family Care: No Living arrangements: with family Occupation/Education: retired Additional occupation/education comments: [employer] Gender identity (if verbalized by the patient): Female Spiritual care concerns: No Meds Home Medications and Allergies Home Medications ?Medication ?Instructions ?Recorded ?Confirmed ?Type sertraline 100 mg tablet (Zoloft) 200 mg PO DAILY 07/16/19 11/27/24 History amitriptyline 50 mg tablet 50 mg PO HS 02/04/20 11/27/24 History aripiprazole 2 mg tablet (Abilify) 4 mg PO DAILY 09/21/20 11/27/24 History clonazepam 2 mg tablet 2 mg PO BID PRN Anxiety 01/13/21 11/27/24 History omeprazole 20 mg tablet,delayed 20 mg PO DAILY 01/09/22 11/27/24 History release zolpidem 10 mg tablet (Ambien) 20 mg PO HS Insomnia 01/09/22 11/27/24 History albuterol sulfate 90 mcg/actuation 2 puff inhalation Q4-6H PRN 11/02/23 11/27/24 Rx aerosol inhaler shortness of breath or wheezing #8.5 grams rosuvastatin 5 mg tablet 5 mg PO DAILY #90 tabs 05/09/24 11/27/24 Rx alendronate 70 mg tablet (Fosamax) 70 mg PO WEEKLY #12 tabs 05/15/24 11/27/24 Rx hydroxychloroquine 100 mg tablet 200 mg PO DAILY 05/15/24 11/27/24 History biotin 2,500 mcg capsule 2,500 mcg PO DAILY 10/28/24 11/27/24 History calcium 650 mg-vitamin D3 12.5 1 tablet PO DAILY 10/28/24 11/27/24 History mcg-vitamin K 40 mcg chewable tablet multivitamin (Daily Multi-Vitamin 1 tablet PO DAILY 10/28/24 11/27/24 History tablet) hydrocodone 10 mg-acetaminophen 1 tablet PO Q8H PRN pain #60 tabs 11/17/24 11/27/24 Rx 325 mg tablet prochlorperazine maleate 10 mg 10 mg PO Q8H PRN nausea and 11/27/24 Rx tablet (Compazine) vomiting #14 tabs ondansetron HCl 8 mg tablet 8 mg PO Q8H PRN nausea and 12/01/24 Rx vomiting #30 tabs Allergies Allergy/AdvReac Type Severity Reaction Status Date / Time minocycline Allergy Mild Headache Verified 11/28/24 12:40 metoclopramide AdvReac Severe ANXIETY Verified 11/28/24 12:40 Exam Narrative: On exam she is tender medially has catching locking and pain with manipulation. Neurologically she is intact. She walks with an antalgic gait. She has pain with any manipulation of motion. Eyes: General: appearance normal, both eyes and all related structures Resp: Effort & Inspection: normal respiratory effort Cardio: Rate: regular rate Rhythm: regular rhythm Radiology Reports: Comments: Magnetic Resonance Report Signed Patient: Olivia Zhou MRI of the right knee Clinical history: Pain Technique: Coronal proton density and proton density-weighted images, sagittal proton-density and T2 fat-sat images, and axial proton-density fat-saturated images were acquired. Findings: Anterior and posterior cruciate ligaments are intact. Medial collateral ligament and the lateral collateral ligament complex are intact. Popliteus tendon is intact. Radial tear present at the posterior root of the medial meniscus. Probable superimposed oblique/horizontal tear of the posterior horn and body of medial meniscus. Lateral meniscus intact. There is grade IV chondromalacia the patellar apex with focal areas of subchondral reactive marrow edema. There is patchy moderate chondral malacia the femoral trochlea. There is high-grade chondromalacia along the central to inner aspect of the medial femoral condyle. There is probable very early developing subchondral sufficiency fracture at the medial tibial plateau with surrounding marrow edema. Articular cartilage in the lateral compartment is relatively well-preserved. Extensor mechanism is intact. Moderate joint effusion present. Impression: Radial tear at the posterior the medial meniscus with suspected superimposed oblique/horizontal tear of the posterior horn and body. Probable early developing subchondral insufficiency fracture of the medial tibial plateau with surrounding amorphous marrow edema. Degenerative changes, as detailed above, especially in the medial and patellofemoral compartments. Reviewed, dictated and finalized at [facility]. Foot X-Ray 03/07/22 Hip X-Ray 04/16/24 Hip/Pelvis X-Ray 06/11/20 Hip MRI 09/30/24 Knee X-Ray 10/14/24 Knee MRI 10/24/24 Orthopedics Result Report 03/07/22 Lumbar Spine MRI 05/05/24 Assessment and Plan Assessment and plan (1) Acute medial meniscus tear of right knee: Code(s): S83.241A - Other tear of medial meniscus, current injury, right knee, initial encounter Status: Acute Assessment and Plan: Patient is knee pain right. Clearly she has a meniscal tear. She has mechanical catching and locking has failed conservative treatment. She would like to consider arthroscopic intervention. I have discussed this with her in detail. I discussed the risks, benefits, limitations, and alternatives. Will proceed per her request.
[2024-12-03] VITALS (9 sets, daily range): BP systolic 106–144; BP diastolic 61–85; PULSE 80–108; RESP 12–16; TEMP 36.2–36.4; O2SAT 96–100
--- OUTSIDE RECORDS SUMMARY | 2024-12-03 03:58 | XMS_ITS | Clinical Summary ---
Author Organization [facility] Address [address] [place] [address] Care Team Providers Care Fire Hydrant Mechanic Name Role Phone Austin Joseph DO Primary Care Provider [phone] Source Comments [facility],non-owned Affiliates and Associated Physician Practices is amultiple site organization consisting of ambulatory clinics and hospital sitesin [place], [place], [place] and [place]. This disclosure is being madepursuant to the Care Everywhere program and may not contain all information available regarding this patient. 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 Gender Identity Not on file Sexual Orientation [...] this topic Medical Devices Implanted Type Area Fiber Heel Piece Shaper Device Identifier Shelf Expiration Date Model / Serial / Lot Mesh Srg Ventralight St Sepra Echo 4.5in Implanted:Qty: 1 on 12/07/2021 by Logan Solorio MD at [facility] Abdomen [employer] 06/27/2023 [id number] / / [id number] Procedures Procedure Name Priority Date/Time Associated Diagnosis [...] Agency Comment Lab Testing performed at: [facility] [place] [address] [facility] [id number] Tessalbert Guzmán Brad MEDICAL SERVICE TECHNICIAN-INSULATION CUTTER LAB - CHEMISTRY O RDERABLES Final Result [facility] ACCOUNT BILL [address] [place] [address] from Last 3 Months or Most Recently [...] 5:21 PM 07/14/2009 11:05 PM Care Teams Fire Hydrant Mechanic Relationship Specialty Start Date End Date Austin Joseph DO [address] [place] [id number] PCP - General Internal Medicine 12/07/21
[2024-12-03] MEDS: ACETAMINOPHEN 500 MG TABLET 1000 MG PO (09:15)
[2024-12-03] MEDS: KETOROLAC 15 MG/ML VIAL (*BKC) IV PUSH (09:15)
[2024-12-03] MEDS: LACTATED RINGERS 1,000 ML 30 ML IV CONT ×2 (09:15→11:15)
--- NOTE | 2024-12-03 09:21 | WPDHPUPDATE1 ---
History and Physical Update Update Date/Time: 12/03/24 09:21 History and Physical has been reviewed, including an updated exam of the patient. There are NO changes in the patient's condition. Risks, benefits, and alternatives have been discussed and questions answered. Patient agrees to proceed with procedure. Will proceed with arthroscopy partial meniscectomy proceed as indicated.
--- NOTE | 2024-12-03 09:48 | WPDANESEPPF ---
Anes - Initial Pre Proc Eval Procedure: Operation Date: 12/03/24 10:30 Proposed Procedures p Right Knee Arthroscopy, Partial Meniscectomy, Proceed As Indicated - Seun Zhou MD Date/Time: 12/03/24 09:48 Surgeon: Seun Zhou MD Pre Op Diagnosis: right knee medial meniscal tear Patient Data Age: 64 Gender: F Height: 1.68 m Weight: 75.7 kg Last Vital Signs Temp 97.2 F L 12/03/24 09:15 Pulse 95 12/03/24 09:15 Resp 16 12/03/24 09:15 BP 126/85 12/03/24 09:15 Pulse Ox 98 12/03/24 09:15 O2 Del Method Room Air 12/03/24 09:15 Allergies Allergy/AdvReac Type Severity Reaction Status Date / Time minocycline Allergy Mild Headache Verified 12/03/24 09:26 metoclopramide AdvReac Severe ANXIETY Verified 12/03/24 09:26 Home Medications ?Medication ?Instructions ?Recorded ?Confirmed ?Type sertraline 100 mg tablet (Zoloft) 200 mg PO DAILY 07/16/19 12/03/24 History amitriptyline 50 mg tablet 50 mg PO HS 02/04/20 11/27/24 History aripiprazole 2 mg tablet (Abilify) 4 mg PO DAILY 09/21/20 12/03/24 History clonazepam 2 mg tablet 2 mg PO BID PRN Anxiety 01/13/21 12/03/24 History omeprazole 20 mg tablet,delayed 20 mg PO DAILY 01/09/22 11/27/24 History release zolpidem 10 mg tablet (Ambien) 20 mg PO HS Insomnia 01/09/22 11/27/24 History albuterol sulfate 90 mcg/actuation 2 puff inhalation Q4-6H PRN 11/02/23 11/27/24 Rx aerosol inhaler shortness of breath or wheezing #8.5 grams rosuvastatin 5 mg tablet 5 mg PO DAILY #90 tabs 05/09/24 12/03/24 Rx alendronate 70 mg tablet (Fosamax) 70 mg PO WEEKLY #12 tabs 05/15/24 11/27/24 Rx hydroxychloroquine 100 mg tablet 200 mg PO DAILY 05/15/24 11/27/24 History biotin 2,500 mcg capsule 2,500 mcg PO DAILY 10/28/24 12/03/24 History calcium 650 mg-vitamin D3 12.5 1 tablet PO DAILY 10/28/24 12/03/24 History mcg-vitamin K 40 mcg chewable tablet multivitamin (Daily Multi-Vitamin 1 tablet PO DAILY 10/28/24 12/03/24 History tablet) hydrocodone 10 mg-acetaminophen 1 tablet PO Q8H PRN pain #60 tabs 11/17/24 11/27/24 Rx 325 mg tablet prochlorperazine maleate 10 mg 10 mg PO Q8H PRN nausea and 11/27/24 Rx tablet (Compazine) vomiting #14 tabs ondansetron HCl 8 mg tablet 8 mg PO Q8H PRN nausea and 12/01/24 Rx vomiting #30 tabs hydrocodone 5 mg-acetaminophen 325 1 tablet PO Q4H PRN pain #30 tabs 12/03/24 Rx mg tablet Patient hx anesthesia problems: none Family hx anesthesia problems: none Results Review: All pre-operative results and documents have been reviewed as part of the pre-operative evaluation. [facility] Past Medical History Medical History (Updated 12/02/24 @ 07:21 by Seun Zhou MD) Acute medial meniscus tear of right knee BMI 28.0-28.9,adult BMI 30.0-30.9,adult Lumbar radiculopathy Lumbar spondylosis Toe fracture, right Anxiety Hemolytic anemia Chronic ITP (idiopathic thrombocytopenia) Systemic lupus Discoid lupus Asthma Wears glasses Vision changes Weight gain Toe fracture, left Surgical History Surgical History History of surgery Suboccipital surgery for acoustic neuroma History of gastric bypass 2014 [place] [address] Logan Solorio History of removal of laparoscopic gastric banding device 2007, 2008 History of cervical discectomy with fusion, 2007 History of breast lift History of abdominoplasty 2000, 2006 Personal history of gastric banding 2002, 2007 History of incisional hernia repair x2 most recent [place] [address] Logan Solorio Hx of cholecystectomy Hx of splenectomy 1983 Family History Family History Father Family history of obesity Depression Heart disease Mother Family history of obesity Depression Patient's mother is in good health Family history of diabetes mellitus in first degree relative Family history of irritable bowel syndrome Hypertension Family history of elevated blood lipids Grandparent Family history of mental disorder Family history of alcoholism Family history of Alzheimer's disease Diabetes mellitus Family history of malignant neoplasm of stomach Family history of heart disease in male family member before age 55 Family history of cardiovascular disease Family history of hepatitis Sibling Patient's sister is in good health Patient's brother is in good health Family history of learning disability Social History Social History (Updated 11/28/24 @ 12:53 by Juliet Arambula, [facility]) Smoking packs per day: 1 Smoking cigarettes per day: 20.0 Years smoked: 2 Smoking pack-years: 2.00 Smoking status: Former smoker Second hand tobacco smoke exposure: No Smoking end date: 04/30/84 Additional smoking assessment comments: SMOKED CIGARETTES IN COLLEGE FOR ABOUT IN YEAR Alcohol intake: former Drinks per week: 3 Alcohol use details: no longer drinks Substance use: former Substance use type: marijuana Other substance usage details: VAPE PEN MARIJUANA Last use: 10/20/24 Do You Feel Safe in your Home?: Yes Lack of Transportation: No Lack of Food: Never True Current Housing: I Have Housing Concerned About Future Housing: No Difficulty Paying Gas/Electric Bills: No Difficulty Paying for Meds: No Currently Unemployed: No Education: Bachelor's Degree Difficulty w/ Childcare or Family Care: No Living arrangements: with family Occupation/Education: retired Additional occupation/education comments: [employer] Gender identity (if verbalized by the patient): Female Spiritual care concerns: No Anes - Eval Final PreProcedure Day of Procedure 12/03/24 09:48 Patient weight: normal Heart: regular rate and rhythm Lungs: clear to auscultation Airway: Mallampati scale class II Neurological: alert and oriented Last oral intake: >/= 8 hours ASA classification: III Emergent: no Anesthetic plan: proceed Results Review: All pre-operative results and documents have been reviewed as part of the pre-operative evaluation. Informed Consent: The patient's anesthetic plan and its attendant risks and benefits were discussed with the patient/family/POA. Questions were solicited and answers provided to the satisfaction of the patient/family/POA.
[2024-12-03] MEDS: ceFAZolin 2 GM in SODIUM CHLORIDE 0.9% IV 50 ML 100 ML IVPB (09:56)
[2024-12-03] MEDS: LIDO 1%/EPINEPHRINE 1:100,000 20 ML VIAL 10 ML INFILTRATE (10:22)
--- NOTE | 2024-12-03 10:31 | P.OP_ITS ---
Procedure Note - Detailed Date of Procedure 12/03/24 Pre-op Diagnosis Right knee medial meniscal tear Post-op Diagnosis Same Procedure Performed RIGHT knee arthroscopy with partial meniscectomy Surgeon Seun Zhou MD Anesthesia General Indications Pain, Locking and Catching Description of Procedure Patient brought to operating room # 7. An anesthetic was administered. The knee was sterilely prepped and draped in the usual manner. Standard portals were used. Superior medial portal was used for the outflow cannula, inferior lateral portal was used for the scope, inferior medial portal was used for the instruments. Arthroscopy was performed, the patellar femoral joint degenerative changes. The medial compartment showed a complex tear. Grade 3 chondromalacia and delamination seen on the medial femoral condyle which was gently debrided. The lateral compartment showed fraying and tearing. The ACL was intact. Using baskets and rodolfo the meniscal tears were trimmed back to a stable base so the nothing further could be pulled into the joint. Any loose or delaminated fragments were gently trimmed to a stable base. At this point the instruments were withdrawn, sutures placed and patient left the operating room in satisfactory condition. Estimated Blood Loss 20 Drains No Packing No Pathology None sent Complications No immediate complications Condition Stable Disposition PACU [facility] Billing Surgery - Charge Forward: Surgery Billing ([id number] [facility] Scope)
[2024-12-03] MEDS: oxyCODONE HCL (*CRX) 5 MG TAB IR PO (11:57)
== END 2024-12-03 12:55 | disposition home or self-care (01) ==
PROVIDERS: PCP Internal Medicine; Visit Provider Orthopaedic Surgery
PROC: (CPT 29870; principal; 2024-12-03 10:30)
DX: S83.231A Complex tear of medial meniscus, current injury, right knee, initial encounter (principal); M17.11 Unilateral primary osteoarthritis, right knee; M94.261 Chondromalacia, right knee; F41.9 Anxiety disorder, unspecified; D58.9 Hereditary hemolytic anemia, unspecified; D69.3 Immune thrombocytopenic purpura; L93.0 Discoid lupus erythematosus; J45.909 Unspecified asthma, uncomplicated; F12.90 Cannabis use, unspecified, uncomplicated; X58.XXXA Exposure to other specified factors, initial encounter; Z79.51 Long term (current) use of inhaled steroids; Z79.83 Long term (current) use of bisphosphonates; Z79.891 Long term (current) use of opiate analgesic; Z98.890 Other specified postprocedural states; Z98.84 Bariatric surgery status; Z98.1 Arthrodesis status; Z90.49 Acquired absence of other specified parts of digestive tract; Z90.81 Acquired absence of spleen; Z87.891 Personal history of nicotine dependence; Z80.0 Family history of malignant neoplasm of digestive organs; Z82.49 Family history of ischemic heart disease and other diseases of the circulatory system
CPT/HCPCS: 29881; J0690; A9270; J1885; J2003; J2004; J2250; J2405; J2704; J3010; J7120

== ENCOUNTER 2025-01-30 08:01 | Outpatient (CLI) | payer BC, SELFPAY ==
--- OUTSIDE RECORDS SUMMARY | 2025-01-30 08:10 | XMS_ITS | Clinical Summary ---
Author Organization [facility] [employer] Address [address] [place] [address] Care Team Providers Care Couples Therapist Name Role Phone Austin Joseph DO Primary Care Provider [phone] Source Comments [facility] [employer],non-owned Affiliates and Associated Physician Practices is amultiple site organization consisting of ambulatory clinics and hospital sitesin [place], [place], [place] and [place]. This disclosure is being madepursuant to the Care Everywhere program and may not contain all information available regarding this patient. 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 Gender Identity Not on file Sexual Orientation [...] - Risk 60-74 years 1-dose series) 2021 DEPRESSION SCREENING 04/30/2024 PAP SMEAR 11/24/2024 11/24/2021, 11/24/2021 COVID-19 VACCINE ( season) 2024 12/16/2020, 07/22/2020, 07/01/2020 INFLUENZA VACCINE (#1) 2024 1, 02/13/2020, 01/28/2018, Additional history exists SCREENING FOR DIABETES 11/28/2026 4, 11/29/2023, 07/20/2022, Additional history exists HEPATITIS B VACCINE Aged Out No longe r eligible based on patient's age to complete this topic HPV VACCINE Aged Out No longer eligi ble based on patient's age to complete this topic Medical Devices Implanted Type Area Communication Technician Device Identifier Shelf Expiration Date Model / Serial / Lot Mesh Srg Ventralight St Sepra Echo 4.5in Implanted:Qty: 1 on 12/07/2021 by Logan Solorio MD at [facility] Abdomen [employer] 06/27/2023 [id number] / / [id number] Procedures Procedure Name Priority Date/Time Associated Diagnosis [...] Agency Comment Lab Testing performed at: [facility] [address] [id number] Tessalbert Guzmán Brad CLIENT LEADER-FITTING SUPERVISOR LAB - CHEMISTRY O RDERABLES Final Result [facility] ACCOUNT BILL [address] [place] [address] from Last 3 Months or Most Recently [...] 5:21 PM 07/14/2009 11:05 PM Care Teams Couples Therapist Relationship Specialty Start Date End Date Austin Joseph DO [address] [place] [id number] PCP - General Internal Medicine 12/07/21
[2025-01-30 09:23] LABS: Hematocrit 37.9 % (37.0-47.0); Hemoglobin 12.1 g/dL (12.0-15.0); Immature Granulocyte Percent A 0.2 % (0-0.5); Lymphocytes Absolute Auto 2.05 K/mm3 (0.9-3.2); Mean Corpuscular HGB Conc 31.9 g/dl (32-36); Mean Corpuscular Hemoglobin 32.6 pg (26-34); Mean Corpuscular Volume 102.2 fl (80-100); Nucleated Red Blood Cells Absolute Auto 0.000 K/mm3 (0.0-0.012); Nucleated Red Blood Cells Perc 0.0 % (0.0-0.2); Platelet Count Result 286 k/mm3 (150-375); Red Blood Count 3.71 M/mm3 (4.2-5.4); White Blood Count 4.6 K/mm3 (4.5-10.0)
[2025-01-30 09:33] LABS: Albumin Level 3.8 g/dL (3.5-5.1); Estimated Glomerular Filt Rate > 60; Glucose 98 mg/dL (65-110)
[2025-01-30 10:34] LABS: MRSA (PCR) NOT DETECTED (NOT DETECTE)
[2025-01-30 11:38] LABS: Hemoglobin A1C 5.5 % (<5.7)
== END 2025-01-30 08:02 | disposition home or self-care (01) ==
LOC: ANHSURGERY 08:04
PROVIDERS: PCP Internal Medicine; Visit Provider Orthopaedic Surgery
DX: Z01.818 Encounter for other preprocedural examination (principal); M16.12 Unilateral primary osteoarthritis, left hip
CPT/HCPCS: 80307; 82040; 82565; 82947; 83036; 85025; 87641

== ENCOUNTER 2025-02-17 00:08 | Day surgery (SDC) | payer BC, SELFPAY ==
--- NOTE | 2025-01-30 07:55 | PC.NURSE ---
Addendum entered by Aurora Mcghee RN 01/30/25 08:46: PLEASE TAKE THE MORNING OF SURGERY ARIPIPRAZOLE,CLONAZEPAM,SERTRALINE PLEASE HOLD ALL VITAMINS AND SUPPLEMENTS 3 DAYS PRE OP PER ANESTHESIA LAST DOSE 02/13/25 Original Note: [facility] has started construction of its new state of the art ER which will open Spring 2026. With this, we anticipate parking may be a challenge for some our surgical patients and families. Parking spaces are limited but are available for all Surgical, obstetrics, and ER patients sharing this lot. If you arrive and find you are having a hard time finding a parking space, please note that we understand the challenges, please drive around the hospital and park near Hospital Entrance 1. When you enter this entrance, you can ask a volunteer to direct or take you back to the surgical waiting area to check in. We appreciate everyone?s understanding of these expected challenges while we build for your future. Report to the Outpatient Waiting Room, entrance under the green pavilion located off [address], at time 6 am on date __02/17/25 . Planned Procedure Time: _7:30 am .? Time changes happen often and if your time is changed the preop area will call you the afternoon before. - You and your visitor will be asked to self-screen and do not enter if you have any COVID symptoms. Please call surgeon if you need to reschedule. - A mask is optional within the hospital at this time. Patients may have clear liquids (water, carbonated beverages, clear teas, apple juice) until 3 hours prior to surgery( 4:30 am) with a maximum of 20 ounces. - No food from midnight until time of surgery and no smoking, or chewing tobacco (or any form of nicotine). No chewing gum, candy or mints. Take only the following medications with a SIP of water on the morning of surgery: DO NOT STOP ANY OF YOUR OTHER PRESCRIPTION MEDICATIONS PRIOR TO SURGERY EXCEPT THE FOLLOWING Hold all vitamins and supplements for 3 days per anesthesiologist. Medications to discontinue per physician Date to take last dose Please no make-up, nail canadian, hairspray, perfume, deodorant, or body powder the day of surgery.? No jewelry (including any body piercings) or valuables the day of surgery, leave them at home.? Please take a shower or bath the night before, or the morning of, surgery with an antibacterial soap.? Wear comfortable, loose fitting clothing.? Children are encouraged to wear pajamas. - Jewelry must be removed prior to entering the operating room.? Rings and piercings that are not removed may be cut off. - The hospital will not accept responsibility for valuables.? - Please leave all valuables, including medications, at home the day of surgery. If you are going home after surgery, a licensed otr tanker truck driver must drive you home.? - NO public transportation without another adult if you receive anesthesia. - We recommend that an adult stay with you for 24 hours following discharge. - We also recommend that you do not drive, make important decision, drink alcoholic beverages, or take any drugs that were not prescribed by your health care provider for at least 24 hours after your discharge time. For Pediatric surgeries, we recommend two adults accompany the child home. Follow any additional instructions given to you from your surgeon. VERBAL AND WRITTEN instructions given to ___PATIENT AND SPOUSE and asked if any additional questions and then verbalized understanding. Patient advised to call surgeon office or pre surgery nurse liaison [phone] if any additional questions.
[2025-01-30 08:08] VITALS: BMI 25.9
[2025-01-30 09:03] VITALS: BP 114/83; PULSE 80; RESP 18; TEMP 36.5; O2SAT 97
[2025-02-17] VITALS (13 sets, daily range): BP systolic 112–138; BP diastolic 60–77; PULSE 75–120; RESP 14–20; TEMP 36.1–36.7; O2SAT 93–100
--- NOTE | ~2025-02-17 | XR_ITS ---
EXAMINATION: XR hip LT min 2V, 02/17/2025 10:35 CDT HISTORY: POST OP LEFT CUSTOM PARVEEN COMPARISON: No comparisons available. Findings: No acute fracture or malalignment. Arthroplasty is intact Soft tissues unremarkable. Impression: No acute fracture or malalignment. Reviewed, dictated and finalized at location P. Impression: No acute fracture or malalignment.
--- NOTE | ~2025-02-17 | XR_ITS ---
EXAMINATION: XR surgery orthopedic DATE: 02/17/2025 09:32 INDICATION: Intraoperative evaluation during left total hip arthroplasty TECHNIQUE: Frontal view of the left hip was obtained. COMPARISON: None. FINDINGS: Intraoperative image during a left total hip arthroplasty demonstrate placement of an acetabular component which appears in near anatomic alignment on the single image provided. A femoral broach is in place with the proximal tip centered over the acetabular component. Portions of the pelvis are excluded from the [id number]. No fractures in the visualized bones. IMPRESSION: 1. Expected appearance during left total hip arthroplasty. Reviewed, dictated and finalized at location A.
--- OUTSIDE RECORDS SUMMARY | 2025-02-17 00:11 | XMS_ITS | Clinical Summary ---
Author Organization [facility] Address [address] [place] [address] Care Team Providers Care Technical Director Name Role Phone Austin Joseph DO Primary Care Provider [phone] Source Comments [facility],non-owned Affiliates and Associated Physician Practices is amultiple site organization consisting of ambulatory clinics and hospital sitesin [place], [place], [place] and [place]. This disclosure is being madepursuant to the Care Everywhere program and may not contain all information available regarding this patient. 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 Gender Identity Not on file Sexual Orientation [...] this topic Medical Devices Implanted Type Area Patch Press Operator Device Identifier Shelf Expiration Date Model / Serial / Lot Mesh Srg Ventralight St Sepra Echo 4.5in Implanted:Qty: 1 on 12/07/2021 by Logan Solorio MD at [facility] Abdomen [employer] 06/27/2023 [id number] / / [id number] Procedures Procedure Name Priority Date/Time Associated Diagnosis [...] Agency Comment Lab Testing performed at: [facility] [place] [address] [id number] Tessalbert Guzmán Brad EGG BREAKER-POTATO CHIP FRYER LAB - CHEMISTRY O RDERABLES Final Result [facility] ACCOUNT BILL [address] [place] [address] from Last 3 Months or Most Recently [...] 5:21 PM 07/14/2009 11:05 PM Care Teams Technical Director Relationship Specialty Start Date End Date Austin Joseph DO [address] [place] [id number] PCP - General Internal Medicine 12/07/21
[2025-02-17] MEDS: ACETAMINOPHEN 500 MG TABLET 1000 MG PO (06:30)
[2025-02-17] MEDS: LACTATED RINGERS 1,000 ML 30 ML IV CONT ×2 (06:35→10:27)
[2025-02-17] MEDS: TRANEXAMIC ACID 1,000MG/ISO100 1,000 MG/100 ML BAG 200 MG IVPB (07:05)
--- NOTE | 2025-02-17 07:12 | SUR.PREOP ---
0710-Dr. Grimm aware of scabbed areas to left lateral upper thigh and lower leg areas and right lateral knee area-will proceed with OR.
--- NOTE | 2025-02-17 07:16 | WPDHPUPDATE1 ---
History and Physical Update Update Date/Time: 02/17/25 07:16 History and Physical has been reviewed, including an updated exam of the patient. There are NO changes in the patient's condition. Risks, benefits, and alternatives have been discussed and questions answered. Patient agrees to proceed with procedure.
--- NOTE | 2025-02-17 07:26 | WPDANESEPPF ---
Anes - Initial Pre Proc Eval Procedure: Operation Date: 02/17/25 07:30 Proposed Procedures p Left Custom Total Hip Arthroplasty - Aubrey Grimm MD Date/Time: 02/17/25 07:26 Surgeon: Aubrey Grimm MD Pre Op Diagnosis: primary OA left hip Patient Data Age: 64 Gender: F Height: 1.68 m Weight: 72.1 kg Last Vital Signs Temp 98.0 F 02/17/25 06:05 Pulse 86 02/17/25 06:05 Resp 20 02/17/25 06:05 BP 120/77 02/17/25 06:05 Pulse Ox 98 02/17/25 06:05 O2 Del Method Room Air 02/17/25 06:05 Allergies Allergy/AdvReac Type Severity Reaction Status Date / Time minocycline Allergy Mild Headache Verified 02/17/25 06:05 metoclopramide AdvReac Severe ANXIETY Verified 02/17/25 06:05 Home Medications ?Medication ?Instructions ?Recorded ?Confirmed ?Type sertraline 100 mg tablet (Zoloft) 200 mg PO DAILY 07/16/19 02/17/25 History amitriptyline 50 mg tablet 50 mg PO HS 02/04/20 02/17/25 History aripiprazole 2 mg tablet (Abilify) 4 mg PO DAILY 09/21/20 02/17/25 History clonazepam 2 mg tablet 2 mg PO BID PRN Anxiety 01/13/21 02/17/25 History omeprazole 20 mg tablet,delayed 20 mg PO DAILY 01/09/22 02/17/25 History release zolpidem 10 mg tablet (Ambien) 20 mg PO HS Insomnia 01/09/22 02/17/25 History albuterol sulfate 90 mcg/actuation 2 puff inhalation Q4-6H PRN 11/02/23 01/30/25 Rx aerosol inhaler shortness of breath or wheezing #8.5 grams rosuvastatin 5 mg tablet 5 mg PO DAILY #90 tabs 05/09/24 02/17/25 Rx hydroxychloroquine 100 mg tablet 200 mg PO DAILY 05/15/24 01/30/25 History biotin 2,500 mcg capsule 2,500 mcg PO DAILY 10/28/24 02/17/25 History calcium 650 mg-vitamin D3 12.5 1 tablet PO DAILY 10/28/24 02/17/25 History mcg-vitamin K 40 mcg chewable tablet multivitamin (Daily Multi-Vitamin 1 tablet PO DAILY 10/28/24 02/17/25 History tablet) ondansetron HCl 8 mg tablet 8 mg PO Q8H PRN nausea and 12/01/24 01/30/25 Rx vomiting #30 tabs alendronate 70 mg tablet (Fosamax) 70 mg PO WEEKLY #12 tabs 01/26/25 02/17/25 Rx gabapentin 300 mg capsule 300 mg PO QHS #30 caps 01/26/25 02/17/25 Rx acetaminophen 500 mg tablet 1,000 mg PO Q6H PRN pain 01/30/25 02/17/25 History (Acetaminophen Extra Strength) cholecalciferol (vitamin D3) 50 50 mcg PO DAILY 01/30/25 02/17/25 History mcg (2,000 unit) tablet hydroxychloroquine 200 mg tablet 400 mg PO DAILY 01/30/25 02/17/25 History tramadol 50 mg tablet 50 mg PO Q12H PRN pain #30 tabs 02/10/25 02/17/25 Rx oxycodone-acetaminophen 5 mg-325 1 - 2 tablet PO Q4-6H PRN pain 7 02/17/25 Rx mg tablet days #20 tabs rivaroxaban 10 mg tablet (Xarelto) 10 mg PO DAILY 30 days #30 tabs 02/17/25 Rx Laboratory Tests 02/17/25 06:33 Blood Type Pending Antibody Screen Pending Patient hx anesthesia problems: none Family hx anesthesia problems: none Results Review: All pre-operative results and documents have been reviewed as part of the pre-operative evaluation. [facility] Past Medical History Medical History Acute medial meniscus tear of right knee BMI 28.0-28.9,adult BMI 30.0-30.9,adult Lumbar radiculopathy Lumbar spondylosis Toe fracture, right Anxiety Hemolytic anemia Chronic ITP (idiopathic thrombocytopenia) Systemic lupus Discoid lupus Asthma Wears glasses Vision changes Weight gain Toe fracture, left Surgical History Surgical History History of surgery Suboccipital surgery for acoustic neuroma History of gastric bypass 2014 [place] [address] Logan Solorio History of removal of laparoscopic gastric banding device 2007, 2008 History of cervical discectomy with fusion, 2006 History of breast lift History of abdominoplasty 2000, 2006 Personal history of gastric banding 2002, 2007 History of incisional hernia repair x2 most recent [place] [address] Logan Solorio Hx of cholecystectomy Hx of splenectomy 1983 Family History Family History Father Family history of obesity Depression Heart disease Mother Family history of obesity Depression Patient's mother is in good health Family history of diabetes mellitus in first degree relative Family history of irritable bowel syndrome Hypertension Family history of elevated blood lipids Grandparent Family history of mental disorder Family history of alcoholism Family history of Alzheimer's disease Diabetes mellitus Family history of malignant neoplasm of stomach Family history of heart disease in male family member before age 55 Family history of cardiovascular disease Family history of hepatitis Sibling Patient's sister is in good health Patient's brother is in good health Family history of learning disability Social History Social History Smoking packs per day: 1 Smoking cigarettes per day: 20.0 Years smoked: 2 Smoking pack-years: 2.00 Smoking status: Former smoker Second hand tobacco smoke exposure: No Smoking end date: 04/30/84 Additional smoking assessment comments: SMOKED CIGARETTES IN COLLEGE FOR ABOUT IN YEAR Alcohol intake: former Drinks per week: 3 Alcohol use details: no longer drinks Substance use: former Substance use type: marijuana Other substance usage details: VAPE PEN MARIJUANA Last use: 10/20/24 Current Housing: Decline to Answer Concerned About Future Housing: Decline to Answer Difficulty Paying Gas/Electric Bills: Decline to Answer Difficulty Paying for Meds: Decline to Answer Currently Unemployed: Decline to Answer Education: Decline to Answer Difficulty w/ Childcare or Family Care: Decline to Answer Living arrangements: with family Occupation/Education: retired Additional occupation/education comments: -[employer] Gender identity (if verbalized by the patient): Female Spiritual care concerns: No Anes - Eval Final PreProcedure Day of Procedure 02/17/25 07:26 Patient weight: normal Heart: regular rate and rhythm Lungs: clear to auscultation Airway: Mallampati scale class II Neurological: alert and oriented Last oral intake: >/= 8 hours ASA classification: III Emergent: no Anesthetic plan: proceed Anesthesia type and monitoring: general ETT and standard monitoring Results Review: All pre-operative results and documents have been reviewed as part of the pre-operative evaluation. Informed Consent: The patient's anesthetic plan and its attendant risks and benefits were discussed with the patient/family/POA. Questions were solicited and answers provided to the satisfaction of the patient/family/POA.
[2025-02-17] MEDS: ceFAZolin 2 GM in SODIUM CHLORIDE 0.9% IV 50 ML 100 ML IVPB ×3 (07:34→23:05)
[2025-02-17] MEDS: SODIUM CHLORIDE 0.9% IV 38.7 ML, MORPHINE SULFATE INJ (*CRX) 2 MG, ROPivacaine HCL 1% 2... INFILTRATE (08:25)
[2025-02-17] MEDS: TRANEXAMIC ACID 1,000 MG/10 ML AMPUL 1000 MG IV PUSH (09:42)
[2025-02-17] MEDS: fentaNYL CITRATE INJ (*CRX) 100 MCG/2 ML VIAL 25 MCG IV PUSH ×6 (10:44→11:10)
[2025-02-17] MEDS: oxyCODONE/ACETAMINOPHEN (*CRX) 10-325 MG TABLET 1 TAB PO ×3 (12:05→23:46)
[2025-02-17] MEDS: SENNA/DOCUSATE SODIUM TABLET 2 TAB PO ×2 (12:08→16:38)
[2025-02-17] MEDS: ACETAMINOPHEN 325 MG TABLET 650 MG PO ×3 (12:09→23:46)
[2025-02-17] MEDS: HYDROXYCHLOROQUINE SULFATE 200 MG TABLET 400 MG PO (12:09)
[2025-02-17] MEDS: FAMOTIDINE 20 MG TABLET PO ×2 (12:09→20:45)
[2025-02-17] MEDS: ROSUVASTATIN 5 MG TABLET PO (12:10)
--- NOTE | 2025-02-17 12:14 | ADMGEN ---
This patient, Olivia Zhou, was admitted to Medical Room 250-01. Patient/family oriented to hospital policies and general routines including ID bracelet, bed and alarms, visiting hours, pain management, procedures, bathroom and other care routines, personal items, smoking policy, room service/diet, and visiting hours. Information on how to activate the Rapid Response Team has been discussed. Patient/Family are encouraged to report perceived risks to care and to ask questions if they do not understand what they are told or what they should do.
[2025-02-17] MEDS: PANTOPRAZOLE 40 MG TABLET PO (13:45)
[2025-02-17] MEDS: RIVAROXABAN 10 MG TABLET PO (16:38)
[2025-02-17] MEDS: HYDROmorphone HCL INJ (*CRX) 1 MG/ML SYR 0.5 MG IV PUSH (16:47)
--- NOTE | 2025-02-17 18:56 | PC.NURSE ---
On 02/17/25, the RN, Renee Gomez, provided care and completed [facility] documentation on this patient. I have reviewed the RN's documentation and agree with the findings.
[2025-02-17] MEDS: GABAPENTIN 300 MG CAPSULE PO (20:49)
[2025-02-17] MEDS: AMITRIPTYLINE HCL 25 MG TABLET 50 MG PO (20:52)
[2025-02-17] MEDS: oxyCODONE/ACETAMINOPHEN (*CRX) 5-325 MG TABLET 1 TABLET PO (20:58)
[2025-02-17] MEDS: CYCLOBENZAPRINE HCL 10 MG TABLET PO (23:05)
[2025-02-18 05:15] LABS: Hematocrit 30.4 % (37.0-47.0); Hemoglobin 9.9 g/dL (12.0-15.0); Immature Granulocyte Percent A 0.3 % (0-0.5); Lymphocytes Absolute Auto 1.77 K/mm3 (0.9-3.2); Mean Corpuscular HGB Conc 32.6 g/dl (32-36); Mean Corpuscular Hemoglobin 32.8 pg (26-34); Mean Corpuscular Volume 100.7 fl (80-100); Nucleated Red Blood Cells Absolute Auto 0.000 K/mm3 (0.0-0.012); Nucleated Red Blood Cells Perc 0.0 % (0.0-0.2); Platelet Count Result 228 k/mm3 (150-375); Red Blood Count 3.02 M/mm3 (4.2-5.4); White Blood Count 9.0 K/mm3 (4.5-10.0)
[2025-02-18 05:17] VITALS: BP 130/72; PULSE 94; RESP 16; TEMP 36.4; O2SAT 94
[2025-02-18] MEDS: oxyCODONE/ACETAMINOPHEN (*CRX) 10-325 MG TABLET 1 TAB PO ×2 (05:31→10:19)
[2025-02-18 05:36] LABS: Anion Gap 3 mmol/L (4-12); Blood Urea Nitrogen 4 mg/dL (7-17); Calcium 8.3 mg/dL (8.4-10.2); Carbon Dioxide 29 mmol/L (22-30); Chloride 102 mmol/L (98-107); Estimated CRCL calculation 83 ml/min; Estimated Glomerular Filt Rate > 60; Glucose 117 mg/dL (65-110); Potassium 4.2 mmol/L (3.4-5.0); Sodium 134 mmol/L (137-145)
[2025-02-18] MEDS: ACETAMINOPHEN 325 MG TABLET 650 MG PO (06:24)
[2025-02-18] MEDS: ceFAZolin 2 GM in SODIUM CHLORIDE 0.9% IV 50 ML 100 ML IVPB (06:27)
[2025-02-18] MEDS: HYDROXYCHLOROQUINE SULFATE 200 MG TABLET 400 MG PO (08:59)
[2025-02-18] MEDS: FAMOTIDINE 20 MG TABLET PO (09:00)
[2025-02-18] MEDS: SENNA/DOCUSATE SODIUM TABLET 2 TAB PO (09:00)
[2025-02-18] MEDS: ROSUVASTATIN 5 MG TABLET PO (09:00)
[2025-02-18] MEDS: SERTRALINE HCL 50 MG TABLET 200 MG PO (09:00)
[2025-02-18] MEDS: PANTOPRAZOLE 40 MG TABLET PO (09:00)
[2025-02-18 09:17] VITALS: BP 135/76; PULSE 95; RESP 16; TEMP 36.6; O2SAT 98
--- NOTE | 2025-02-18 09:56 | W.PM.PROC2 ---
Procedure Note - Detailed Date of Procedure 02/18/25 Pre-op Diagnosis primary OA left hip Post-op Diagnosis Same Procedure Performed Left Total Hip Arthroplasty Surgeon Aubrey Grimm MD [employer] Screen Printer Helper Dianne Oliveira PA-C Anesthesia General Findings 3D templating with a CT scan was performed preoperatively. Optimal offset and leg length was confirmed. The custom femoral neck cutting guide fit optimally. To minimize leg length discrepancy the stem was inserted several mm deeper. Intraoperative x-rays confirmed appropriate component position. Description of Procedure The patient was given preoperative antibiotics. A general anesthetic was administered. The patient was carefully placed in the lateral decubitus position. The shoulders and hips were carefully positioned for component and leg length positioning reference. The hip was prepped and draped in the usual sterile fashion. A longitudinal incision was created over the posterior aspect of the greater trochanter. Careful dissection was brought down through the deep fascia with electrocautery. A minimally invasive optimized posterior approach to the hip was performed. The short external rotators and capsule were taken down in an L-shaped capsulotomy. The piriformis was preserved. The tissue was tagged for later repair using number 2 high strength suture. The femoral neck was measured with the jig, after dislocation. The femoral head was removed. The acetabulum was carefully exposed. The inferior capsule was released. The labrum was resected. The acetabulum was sequentially reamed to 2 under the intended cup size. The cup was impacted into position with excellent press-fit. Typical anatomic landmarks, including the bony contact points as well as the inferior transverse acetabular ligament were used to confirm cup positioning with preoperative templating. Attention was turned to the femur, which was carefully exposed. The hip was reamed and then broached sequentially. Excellent press-fit was obtained with the broach. The hip was trialed. Measurements were utilized, including the lesser trochanter as well as the center of the femoral head and the tip of the trochanter, and excellent assessment of the offset and leg lengths were confirmed. Intraoperative x-rays were taken to confirm optimal component position. The real component was impacted into position. Trialing confirmed appropriate leg length and offset with soft tissue balancing as well apparent feel of the leg, both at the knee and the heel. Soft tissues were assessed using the the iliotibial band. Reduction of the posterior capsule and external rotators were also used as a secondary assessment. The hip was copiously irrigated with pulsatile lavage periodically throughout the procedure. The real components were then assembled and reduced. The hip was stable throughout typical maneuvers, including extension, external rotation to 70 degrees, the position of sleep as well as flexion to 90 degrees with internal rotation past 35 degrees. The shake test confirmed stability without impingement. Osteophytes were removed as necessary. The short external rotators and capsule were repaired back to the posterior trochanter through drill holes. The deep fascia was repaired with running number 2 barbed suture, followed by 2-0 Stratafix suture and 3-0 Stratafix suture in the dermis. Steri-Strips were placed on the skin, followed by a sterile occlusive dressing. There were no complications. Meticulous hemostasis was maintained with the AquaMantys device. The patient was brought to the recovery room in stable condition. There were no complications. Physician stores assistant, Dianne Oliveira PA-C, required for surgery; including patient positioning, draping, tissue retraction, maintaining instrument position, hip dislocation/ relocation, wound closure, and dressing placement. Implants Restore 3D conformis high offset size 5 , was utilized with excellent press-fit. The 50 mm acetabular component was impacted with excellent press-fit stability. +2 elevated lip polyethylene liner the -4, 36 mm Biolox ceramic femoral head was utilized. Estimated Blood Loss 350 Drains No Packing No Pathology None sent Complications No immediate complications Condition Stable Disposition PACU [facility] Billing Surgery - Charge Forward: Surgery Billing
== END 2025-02-18 11:55 | disposition home or self-care (01) ==
LOC: ANHSURGERY 07:12 → ANH2MED 11:35
PROVIDERS: Physician Assistant Surgical; PCP Internal Medicine; Visit Provider Orthopaedic Surgery
PROC: (CPT 27130; principal; 2025-02-17 07:30)
DX: M16.12 Unilateral primary osteoarthritis, left hip (principal); M84.452A Pathological fracture, left femur, initial encounter for fracture; F12.90 Cannabis use, unspecified, uncomplicated
CPT/HCPCS: 27130; 36415; 73502; 80048; 85025; 86850; 86900; 86901; 97110; 97116; 97161; 97166; 97530; 97535; 99199; J0690; A9270; J0166; J1100; J1171; J2003; J2250; J2270; J2405; J2704; J2795; J3010; J3290; J7120

== ENCOUNTER 2025-03-31 13:54 | Outpatient (CLI) | payer BC, SELFPAY ==
--- NOTE | ~2025-03-31 | XR_ITS ---
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 Findings: No acute fracture or malalignment. Moderate to severe tricompartmental degenerative changes, small effusion Soft tissues unremarkable. Impression: No acute fracture or malalignment. Reviewed, dictated and finalized at location P. ER OPERATOR Impression: No acute fracture or malalignment.
--- OUTSIDE RECORDS SUMMARY | 2025-03-31 15:05 | XMS_ITS | Clinical Summary ---
Author Organization [facility] Address [address] [place] [address] Care Team Providers Care Telemarketing Representative Name Role Phone Austin Joseph DO Primary Care Provider [phone] Source Comments [facility],non-owned Affiliates and Associated Physician Practices is amultiple site organization consisting of ambulatory clinics and hospital sitesin [place], [place], [place] and [place]. This disclosure is being madepursuant to the Care Everywhere program and may not contain all information available regarding this patient. 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 Gender Identity Not on file Sexual Orientation [...] 50+ (1 of 2 - PCV) 1980 PAP with HPV 11/11/1991 Respiratory Syncytial Virus (RSV) Vaccine Pt: or over 60 yrs (1 - Risk 50-74 years 1-dose series) 11/11/2011 ZOSTER VACCINE (1 of 2) 11/11/2011 DEPRESSION SCREENING 04/30/2024 Cervical Cancer Screening 11/24/2024 PAP SMEAR 11/24/2024 11/24/2021, 11/24/2021 COVID-19 VACCINE ( - season) 2024 12/16/2020, 07/22/2020, 07/01/2020 INFLUENZA VACCINE (#1) 2024 , 02/13/2020, 01/28/2018, Additional history exists SCREENING FOR DIABETES 11/28/2026 4, 11/29/2023, 07/20/2022, Additional history exists HEPATITIS B VACCINE Aged Out No longe r eligible based on patient's age to complete this topic HPV VACCINE Aged Out No longer eligi ble based on patient's age to complete this topic Medical Devices Implanted Type Area Associate Professor Of Physics Device Identifier Shelf Expiration Date Model / Serial / Lot Mesh Srg Ventralight St Sepra Echo 4.5in Implanted:Qty: 1 on 12/07/2021 by Logan Solorio MD at [facility] Abdomen [employer] 06/27/2023 [id number] / / [id number] Procedures Procedure Name Priority Date/Time Associated Diagnosis [...] Agency Comment Lab Testing performed at: [facility] [place] [address] [id number] Tess Salinas MANAGED CARE LIAISON-INSTRUCTOR ROBOTICS LAB - CHEMISTRY O RDERABLES Final Result [facility] ACCOUNT BILL [address] [place] [id number] from Last 3 Months or Most Recently [...] 5:21 PM 07/14/2009 11:05 PM Care Teams Telemarketing Representative Relationship Specialty Start Date End Date Austin Joseph DO [address] [place] [address] PCP - General Internal Medicine 12/07/21
== END 2025-03-31 13:55 | disposition home or self-care (01) ==
PROVIDERS: PCP Internal Medicine; Visit Provider Internal Medicine
DX: M25.561 Pain in right knee (principal)
CPT/HCPCS: 73562